=== PATIENT | male | born 1945 | race Caucasian/White ===

== ENCOUNTER → 2017-10-03 16:32 | Outpatient (CLI) | payer MEDICARE, OTHER, SELFPAY ==
--- NOTE | 2017-10-03 16:56 | XR_ITS ---
XR tibia fibula RT 2V CLINICAL INDICATION: Right lower extremity pain and swelling with palpable abnormality ORDERING PHYSICIAN: Era Herrera PATIENT AGE: 72 years COMPARISON: None FINDINGS: There is been prior total knee replacement. There is generalized vascular calcification. No lytic or blastic change. No abnormal soft tissue findings of the leg. No radio opaque foreign bodies IMPRESSION: Status post total knee replacement with generalized vascular calcification otherwise negative right tibia
--- NOTE | 2017-10-03 16:56 | XR_ITS ---
XR hip RT 2-3V w/pelvis CLINICAL INDICATION: Right hip pain ORDERING PHYSICIAN: Era Herrera PATIENT AGE: 72 years COMPARISON: None FINDINGS: Mild osteoarthritic changes involve's both hips slightly greater on the right. There are hypertrophic changes along the acetabular roof laterally. No fracture or dislocation. No lytic or blastic change. There is generalized vascular calcification. IMPRESSION: Mild osteoarthritis of the hips, no acute process
--- NOTE | 2017-10-03 16:56 | XR_ITS ---
XR ankle RT min 3V HISTORY: Right lateral ankle pain ORDERING PHYSICIAN: Era Herrera PATIENT AGE: 72 years COMPARISON: None FINDINGS: No fracture or dislocation. No lytic or blastic change. There is normal mineralization.. The joint spaces are well-preserved. No significant degenerative/arthritic changes. No erosive changes evident. Minimal hypertrophic change involves the medial malleolar region. There is generalized vascular calcification. IMPRESSION: No active process, minimal degenerative changes
--- NOTE | 2017-10-03 16:56 | XR_ITS ---
XR knee RT 3V CLINICAL INDICATION: Right knee pain with swelling and palpable knot ITS.REASON: RT KNEE FLOYD,RT TIB/FIB KNOT,SWELLING ORDERING PHYSICIAN: Era Herrera PATIENT AGE: 72 years COMPARISON: None FINDINGS: There has been a prior total knee replacement. There is good alignment of the prosthesis without evidence of orthopedic complication. Increased density is present in the suprapatellar region consistent with knee joint effusion. There is generalized vascular calcification as well as some minimal periarticular calcification laterally nonspecific. No acute fracture or dislocation. No lytic or blastic change. IMPRESSION: Status post total knee replacement with knee joint effusion
== END ==
PROVIDERS: PCP Physician Assistant; Visit Provider Physician Assistant
DX: M25.561 Pain in right knee (principal); M25.461 Effusion, right knee
CPT/HCPCS: 73502; 73562; 73590; 73610

== ENCOUNTER 2017-11-09 09:51 | Outpatient (RCR) | payer MEDICARE, OTHER, SELFPAY | END 2018-01-31 11:13 | disposition home or self-care (01) | LOC: PT 09:51 | PROVIDERS: Family Provider Physician Assistant; PCP Physician Assistant; Visit Provider Physician Assistant | DX: I48.92 Unspecified atrial flutter (principal) | CPT/HCPCS: 93798 ==

== ENCOUNTER → 2017-12-27 11:38 | Outpatient (CLI) | payer MEDICARE, OTHER, SELFPAY ==
--- NOTE | 2017-12-27 | XR_ITS ---
XR knee RT 3V HISTORY: Right knee pain ITS.REASON: H/O VERO KNEE REPLACEMNT 3 YEARS AGO, C/O RT KNEE PAIN AND SW ORDERING PHYSICIAN: Melchor Beckham PATIENT AGE: 72 years COMPARISON: 10/03/2017 FINDINGS: Status post total knee arthroplasty with good alignment of the prosthesis. There remains increased density in the suprapatellar region consistent with knee joint effusion. Vascular calcification also noted. IMPRESSION: Good alignment knee prosthesis with persistent suprapatellar effusion
--- NOTE | 2017-12-27 11:42 | NM_ITS ---
NM bone 3 phase CLINICAL INDICATION: ITS.REASON: RT KNEE PAIN ORDERING PHYSICIAN: Melchor Beckham PATIENT AGE: 72 years DOSE: 26.7 mCi technetium MDP COMPARISON: Right knee radiograph FINDINGS: Photopenic defects are present from bilateral total knee arthroplasties. Anterior images suggests slight increased blood flow to the suprapatellar region on the right with very slight increase in blood pool activity in the suprapatellar/distal femur region on the right Delayed images suggest slight increased activity in the lateral aspect of the distal femur. This however is only observed on the lateral views and not on the AP views and could be technical in nature. Images obtained from the same day of the right knee show a suprapatellar effusion. IMPRESSION: 1. Status post bilateral total knee replacement. 2. There is slight increase in blood flow and blood pool activity to the suprapatellar region on the right suggesting some mild underlying cellulitis or inflammation. There is a suprapatellar effusion noted on the radiograph 3. No convincing evidence of prosthesis loosening or prosthesis infection
== END ==
PROVIDERS: Family Provider Physician Assistant; PCP Physician Assistant; Visit Provider Orthopaedic Surgery
DX: M25.561 Pain in right knee (principal)
CPT/HCPCS: 73562; 78315; A9503

== ENCOUNTER → 2018-03-05 10:37 | Outpatient (CLI) | payer MEDICARE, OTHER, SELFPAY ==
[2018-03-05 13:30] LABS: Anion Gap 15.6 mEq/L (5-15); Blood Urea Nitrogen 23 mg/dL (7-18); Calcium 9.1 mg/dL (8.5-10.1); Carbon Dioxide 24 mmol/L (21.0-32.0); Chloride 101 mmol/L (98-107); Creatinine,Serum 1.45 mg/dL (0.70-1.30); Estimated Glomerular Filt Rate 48 ml/min (>60); GFR (African American) 58 ML/MIN (>60); Glucose 317 mg/dL (74-106); Potassium 4.6 mmoL/L (3.5-5.1); Sodium 136 mmol/L (136-145)
== END ==
PROVIDERS: Visit Provider Physician Assistant
DX: E87.5 Hyperkalemia (principal)
CPT/HCPCS: 36415; 80048

== ENCOUNTER → 2018-09-26 08:45 | Outpatient (CLI) | payer MEDICARE, OTHER, SELFPAY ==
[2018-09-26 09:16] LABS: Blood Urea Nitrogen 18 mg/dL (7-18); Creatinine,Serum 1.21 mg/dL (0.70-1.30); Estimated Glomerular Filt Rate 59 ml/min (>60); GFR (African American) 72 ML/MIN (>60)
--- NOTE | 2018-09-26 09:55 | MR_ITS ---
MR head/brain wo/w con Ordering Physician: Era Herrera Patient Age: 73 years: Male HISTORY: ITS.REASON: ATAXIA, GAIT ABNORMALITY Patient off balance tend to list to the right. Right leg weakness one year. Some shaking right hand. TECHNIQUE: Pre and postcontrast imaging of brain. : Precontrast Multiplanar FLAIR, T1, T2 weighted images along with axial diffusion/ADC imaging performed on 1.5 T. Siemens, MRI. Postcontrast imaging [id number] ProHance T1-weighted images axial & coronal plane performed COMPARISON :CT head without contrast from 06/05/2018 FINDINGS No mass lesion. No abnormal areas of enhancement Diffusion images show no acute or recent infarct. No territorial infarct evident. No subdural or extra-axial collections. Mild diffuse cerebral atrophy age appropriate . A subtle rim of high signal about the lateral ventricles reflecting aging changes with only scant negligible deep white matter signal foci changes.. Only a subtle scant deep white matter high signal foci otherwise noted, at deep white matter overlying the atria of the left lateral ventricle.. Most notable here is a small high signal focus measures up to 5 mm-. Axial flair image 13. At the base of the left basal ganglia note benign generous recess or perivascular space. No no gliosis associated this is not of significance. Ventricle and basal cisterns appear satisfactory. Cranial cervical junction appears normal, satisfactory.. I would note cervical spondylosis at C3/4 with generous uncovertebral spur to the right paracentral suggested as seen on June CT C-spine... Developing Spinal stenosis this level but. Partially imaged on today's study. The posterior fossa satisfactory. Question scant cerebellar atrophy. Ruebn appears normal.. The CP angles are clear. Cranial nerve VII, 8 appear grossly satisfactory as a past to the respective IACs. No abnormal enhancement in the regions.. No obvious aneurysm at the [place]. Appears to be patent left posterior communicating artery and question, suspect a patent threadlike vessel right posterior technique and artery. mastoid air cells are clear with no mastoid effusion. Middle ear clear. IACs unremarkable. on the previous Jun 2018 CT there was near opacification left sphenoid sinus. Patient on today's MR we continue see near opacification with material that is low signal on T2-weighted images, and intermediate signal on T1 weighted images. This most likely reflects high protein content material greater than 25% protein content inspissated mucoid material. A scant rim of higher T2 signal mucosal thickening otherwise seen at the periphery of the sphenoid sinus. . Only borderline/Scant mucosal thickening at the ethmoid air cells and maxillary sinuses. Frontal sinus is clear/unremarkable.. Orbits unremarkable. Engorgement nasal turbinates bilaterally with deviation of nasal septum convexity mainly evident to the right. Minimal hannah bullosa slightly enlarging middle turbinate on right IMPRESSION------ 1. Diffuse moderate cerebral atrophy. Age-appropriate .Also Question scant cerebellar atrophy. 2. . No acute intracranial findings-no recent or acute ischemia. .....No mass lesion. No territorial infarct ... Scant negligible/minor deep white matter ischemic/gliotic high signal foci findings at cerebral hemispheric (most evident overlying the atrium left lateral ventricle.) 3.. In regard ataxia abnormal gait the CP angles IACs unremarkable.. Unremarkable mastoids.. Only question some scant cerebellar atrophy. Equivocal. Other observations: 4...Opacification left sphenoid sinus similar to Jun 2018 CT head study.... This most likely reflects high proteinaceous material filling the left sphenoid sinus, with a thin rim of edematous mucosa surr
== END ==
PROVIDERS: Visit Provider Physician Assistant
DX: R26.89 Other abnormalities of gait and mobility (principal)
CPT/HCPCS: 36415; 70553; 82565; 84520; A9576

== ENCOUNTER 2020-08-15 11:52 | Emergency (ER) | payer MEDICARE, SELFPAY ==
[2020-08-15 12:39] VITALS: BP 116/63; PULSE 64; RESP 18; TEMP 36.6; O2SAT 99; BMI 28.5
--- NOTE | 2020-08-15 12:45 | HMH.EDUTC ---
[facility] Disposition Clinical Impression: Dizziness Sinusitis Qualifiers: Sinusitis location: unspecified location Chronicity: unspecified Qualified Code(s): J32.9 - Chronic sinusitis, unspecified Otitis media Qualifiers: Otitis media type: unspecified Laterality: left Qualified Code(s): H66.92 - Otitis media, unspecified, left ear Disposition: Home, Self-Care Condition on Discharge: Good Instructions: Combating Dizziness in Older Adults, Sinusitis, Sinus Headache, Middle Ear Infection, Meclizine, Amoxicillin Additional Instructions: *Monitor Temp, Over the counter Motrin or Tylenol as directed/as needed Tylenol every 4 hours and Motrin every 6 hours (as long as your family doctor has told you that you can take it) for fever or pain. and straight to ER if unable to lower temp less than 101.0 after medication given *Warm salt water gargles may help to soothe the throat *Throat Lozenges *Warm fluids like tea with honey may help to soothe the throat *Sleep elevated *Humidifier/Vaporizer *Flonase 2 sprays in each nostril daily but be aware that it may take 2-3 days before you notice improvement Take medication as prescribed Follow up IMMEDIATELY for new or worsening symptoms or no Noticeable improvement over the next 48-72 hours. 911 for difficulty breathing or swallowing You was tested for today for COVID19 your test result should be back in the next 24-48 hours, you may call to the [facility] tomorrow to see if your test results are back and the result [phone] You was given a handout with instructions for Self Quarantine and Self isolation for while you wait on test results and what to do if they are positive If you are positive the Health Dept will be contacting you also Prescriptions: Amoxicillin [Amoxicillin 500mg Cap] 500 mg PO TID #30 cap Transmission Status: Received by [facility] Meclizine HCl [Antivert 12.5mg tablet] 12.5 mg PO BID PRN #10 tab PRN Reason: Dizziness Transmission Status: Received by [facility] Referrals: Sharonda Abarca [Primary Care Provider] - As needed Time of Disposition: 13:00 Medical Decision Making - Ricki Inquiry Pt receiving controlled substance: No Ricki was queried for this patient: No Vital Signs: 08/15/20 12:39 Temperature 98 F Temperature Source Oral Pulse Rate [Radial] 64 Respiratory Rate 18 Blood Pressure [Right Arm] 116/63 Blood Pressure Mean [Right Arm] 80 Blood Pressure Source [Right Arm] Automatic Cuff Blood Pressure Position [Right Arm] Sitting 02 Sat by Pulse Oximetry 99 Oxygen Delivery Method Room Air Orders (Tests/Meds): ORDERS Category Date Time Status Covid-19 Nasal PCR ([facility]) Routine Lab 08/15/20 12:20 Received Medical Decision Narrative: Medication discussed with pharmacy [facility] HPI - General Stated complaint: cough,weakness, wants covid test Time Seen by Provider: 08/15/20 12:45 Mode of Arrival: Wheelchair Source of Information: Patient Limitations: No Limitations Description of Symptoms (Recalled from Triage Doc. by RN): dizziness,cough since this am wants covid test HEENT Symptoms (Recalled from RN notes): Yes Resp Symptoms (Recalled from RN notes): No Skin Symptoms (Recalled from RN notes): No MS Symptoms (Recalled from RN notes): No Functional Status (Recalled from RN notes): wnl - History of Present Illness Provider Complaint: Patient state that he has been having spells of dizziness for over a month States that he has been having some sinus congestion and feeling like his ears are full States that this morning he woke up and had some dizziness, feeling achy all over and was worried that he may have COVID and wanted to get tested Denies dizziness at this time - Related Data Home Medications Medication Instructions Recorded Confirmed Apixaban [Eliquis] 5 mg PO BID 06/05/18 06/05/18 Aspirin [Aspir 81] 81 mg PO DAILY 06/05/18 06/05/18 Cholecalciferol (Vitamin D3) 1,000 unit PO DAILY 06/05/18 06/05/18 [
[2020-08-15 13:15] VITALS: BP 116/63; PULSE 64; RESP 18; TEMP 36.6; O2SAT 99
== END 2020-08-15 13:16 | disposition home or self-care (01) ==
PROVIDERS: Emergency Provider Nurse Practitioner; PCP Family Medicine
DX: Z20.828 Contact with and (suspected) exposure to other viral communicable diseases (principal); J32.9 Chronic sinusitis, unspecified; H66.92 Otitis media, unspecified, left ear; E11.9 Type 2 diabetes mellitus without complications; Z79.899 Other long term (current) drug therapy
CPT/HCPCS: G0463; 99201; U0003

== ENCOUNTER → 2020-10-28 12:26 | Outpatient (CLI) | payer MEDICARE, SELFPAY ==
--- NOTE | 2020-10-28 12:27 | CA_ITS ---
APPROVED REPORT EXAM: Comprehensive 2D, Doppler, and color-flow Echocardiogram Senior Designer: Diana Nice RVT Ht: 6 ft 0 in Wt: 208lbs BSA: 2.17 BP: 113/64 mmHg Indications: SOA,CAD,DM,A-FIB,HTN,HLD 2D Dimensions LVOT 1.75 cm (M/F) 1.5-2.5 M-Mode Dimensions RVDd 2.37 cm (0.9-2.6) LA Diam 3.49 cm (1.9-4.0) LVDd 4.38 cm (3.5-5.7) Ao Diam 3.63 cm (2.0-3.7) LVDs 2.85 cm (3.5-5.7) IVSd 1.49 cm (0.6-1.1) PWd 0.92 cm (0.6-1.1) EF (Teich) 64.40% FS 34.90% EDV (Teich) 86.80 mL ESV (Teich) 30.90 mL LV Diastology E Decel Time 313.00 (160-240 msec) E/A Ratio 0.8 MED E' 4.30 (< 7 cm/sec) E'/MED E' Ratio 12.44 (>14) LAT E' 7.80 (<10 cm/sec) E/LAT E' Ratio 6.86 (>14) Mitral Valve MV E Max Owen. 54.00 (40-130 cm/s) MV A Velocity 72.00 (40-130 cm/s) E/A Ratio 0.75 MV Decel. Time 313.00 (160-240 ms) MV PHT 92.00 ms Pulmonary Valve PV Peak Velocity 66.00 (50-150 cm/s) Tricuspid Valve TR P. Velocity 153.00 cm/s Left Ventricle Left atrium is mildly enlarged, left ventricle is normal size, mild concentric left ventricular hypertrophy, visually estimated ejection fraction 55% with no regional wall motion abnormality, diastolic parameters are inconclusive. Right Ventricle Right atrium and right ventricle are normal size and contractility. Aortic Valve Aortic valve is thickened and calcified without aortic stenosis or aortic insufficiency. Mitral Valve Mitral valve leaflets are minimally thickened, there is mild mitral regurgitation. Tricuspid Valve Tricuspid valve is grossly normal, there is trace tricuspid regurgitation, tricuspid regurgitation jet velocity is inadequate for calculation of the right ventricular systolic pressure. Pulmonic Valve Pulmonic valve is poorly visualized. Great Vessels Aortic root is normal size. Pericardium No significant pericardial effusion noted. Conclusion 1. Mildly enlarged left atrium, normal left ventricular size, mild concentric left ventricular hypertrophy, visually estimated ejection fraction 55% with no regional wall motion abnormality, diastolic parameters are inconclusive. 2. Thickened and calcified aortic valve without aortic stenosis or aortic insufficiency. 3. Mild mitral and tricuspid regurgitation. 4. No significant pericardial effusion noted. Electronically signed by : Esa Pham, 10/28/2020 18:30:47
== END ==
PROVIDERS: PCP Family Medicine; Visit Provider Nurse Practitioner Family
DX: E11.9 Type 2 diabetes mellitus without complications (principal); I25.10 Atherosclerotic heart disease of native coronary artery without angina pectoris; I48.0 Paroxysmal atrial fibrillation; Z85.828 Personal history of other malignant neoplasm of skin; Z95.5 Presence of coronary angioplasty implant and graft; Z79.84 Long term (current) use of oral hypoglycemic drugs
CPT/HCPCS: 93306

== ENCOUNTER 2021-09-29 10:00 | Outpatient (RCR) | payer MEDICARE, SELFPAY | END 2021-11-02 14:00 | disposition home or self-care (01) | LOC: PT.CARL 10:00 | PROVIDERS: PCP Family Medicine; Visit Provider Orthopaedic Surgery Adult Reconstructive Orthopaedic Surgery | DX: M54.50 Low back pain, unspecified (principal); M46.1 Sacroiliitis, not elsewhere classified | CPT/HCPCS: 97010; 97012; 97014; 97110; 97140; 97163; G0283 ==

== ENCOUNTER 2022-02-25 15:43 | Emergency (ER) | payer MEDICARE, SELFPAY ==
[2022-02-25 15:44] VITALS: BP 123/73; PULSE 80; RESP 18; TEMP 39.3; O2SAT 98; BMI 27.1; BMI 31.1
--- NOTE | 2022-02-25 15:58 | XR_ITS ---
PROCEDURE INFORMATION: Exam: XR Chest Exam date and time: 02/25/2022 4:19 PM Age: 76 years old Clinical indication: Cough; Additional info: Fever cough TECHNIQUE: Imaging protocol: XR of the chest. Views: 1 view. COMPARISON: CR CXR2 XR chest AP 06/05/2018 6:19 AM FINDINGS: Tubes, catheters and devices: Loop recorder is noted. Lungs: No focal pneumonia or pneumothorax. Atelectatic changes noted within both lung bases. Pleural spaces: There are no pleural effusions present. Heart/Mediastinum: Unremarkable. No cardiomegaly. Bones/joints: Postoperative changes of the lower cervical spine. The thoracic spine demonstrates moderate degenerative changes at multiple levels. IMPRESSION: 1. No focal pneumonia or pneumothorax. 2. Atelectatic changes noted within both lung bases.
[2022-02-25 16:00] VITALS: BP 145/61; PULSE 69; RESP 17; O2SAT 95
[2022-02-25 16:33] LABS: Coronavirus 19, PCR Not Detected (NotDetected); Influenza A, PCR Not Detected (NotDetected); Influenza B, PCR Not Detected (NotDetected)
[2022-02-25 16:36] LABS: Potassium 4.8 mmoL/L (3.5-5.1); Sodium 133 mmol/L (136-145)
[2022-02-25 16:37] LABS: Chloride 98 mmol/L (98-107)
[2022-02-25 16:38] LABS: Basophils # 0.1 K/mm3 (0-0.2); Basophils % 0.6 % (0.1-2.0); Eosinophils % 0.3 % (0.1-12.0); Hematocrit 44.4 % (42.0-52.0); Hemoglobin 14.8 g/dL (14.1-18.0); Lymphocytes # 0.4 K/mm3 (0.7-4.5); Lymphocytes % 3.4 % (10-50); Mean Corpuscular HGB Conc 33.3 g/dL (31.8-35.4); Mean Corpuscular Hemoglobin 29.9 pg (27.0-31.2); Mean Corpuscular Volume 89.6 fl (80-94); Mean Platelet Volume 9.1 fl (7.4-10.4); Monocytes # 0.5 K/mm3 (0.1-1.0); Neutrophils # 9.4 K/mm3 (1.8-7.8); Neutrophils % 90.8 % (37.0-80.0); Platelet Count 112 K/mm3 (142-424); Red Blood Count 4.95 M/mm3 (4.60-6.20); Red Cell Distribution Width 14.1 % (11.5-17.5); White Blood Count 10.4 K/mm3 (4.8-10.8)
[2022-02-25 16:39] LABS: Alanine Aminotransferase 30 U/L (12-78); Albumin Level 4.7 g/dl (3.5-5.0); Albumin/Globulin Ratio 1.6 (1.1-1.8); Alkaline Phosphatase 67 U/L (38-126); Anion Gap 16.8 mEq/L (5-15); Aspartate Amino Transferase 31 U/L (17-59); Bilirubin,Total 1.3 mg/dl (0.2-1.3); Blood Urea Nitrogen 22 mg/dl (9-20); Carbon Dioxide 23 mmol/L (22.0-30.0); Creatinine Clearance Estimated 64 mL/min (50-200); Estimated Glomerular Filt Rate 54 ml/min (>60); GFR (African American) 65 ML/MIN (>60); Total Protein,Serum 7.7 g/dl (6.3-8.2)
[2022-02-25 16:40] LABS: Calcium 9.7 mg/dl (8.4-10.2)
[2022-02-25 16:41] LABS: MANUAL DIFFERENTIAL MANUAL DIFFERENTIAL (MANUAL DIFF)
[2022-02-25 16:43] LABS: Lactic Acid 2.2 mmol/L (0.7-2.1)
[2022-02-25 16:44] LABS: Glucose 411 mg/dl (74-100)
--- NOTE | 2022-02-25 16:44 | PC.NURSE ---
[facility] glucose 411
[2022-02-25 17:00] VITALS: BP 140/60; PULSE 69; RESP 25; O2SAT 95
[2022-02-25 17:02] LABS: VBG Base Excess -5.4 mmol/L (-2.4-2.3); VBG HCO3 20.2 mmol/L (23-30); VBG Oxygen Saturation 69.6 % (50-70); VBG PCO2 37.5 mmol/L (35-51); VBG PH 7.35 mmol/L (7.31-7.41); VBG PO2 35.1 mmol/L (28-40); VBG Total CO2 21.3 mmol/L (23-27)
[2022-02-25 17:21] LABS: Acetone, Serum (Rapid) None Detected (None Detect)
--- NOTE | 2022-02-25 17:26 | HMH.EDGENADL ---
ED Disposition Clinical Impression: Generalized weakness, Acute febrile illness, Hyperglycemia due to diabetes mellitus Disposition: Home, Self-Care Condition on Discharge: Good Referrals: Polina Long APRN [Primary Care Provider] - - Critical Care Critical Care Time: No Attestation: On 02/25/22, the high probability of a clinically significant, sudden or life threatening deterioration of the following system(s) required my full and direct attention, intervention and personal management. The time I documented below is in addition to time spent performing reported procedures but includes the following listed in this critical care notation. Medical Decision Making - Ricki Inquiry Pt receiving controlled substance: No Vital Signs: 02/25/22 15:44 02/25/22 16:00 02/25/22 17:00 Temperature 102.8 F H Temperature Source Oral Pulse Rate 69 69 Pulse Rate [Radial] 80 Respiratory Rate 18 17 25 H Blood Pressure 145/61 H 140/60 Blood Pressure [Right Arm] 123/73 Blood Pressure Mean 86 Blood Pressure Mean [Right Arm] 89 Blood Pressure Position [Right Arm] Sitting 02 Sat by Pulse Oximetry 98 95 95 Oxygen Delivery Method Room Air Room Air 02/25/22 20:46 Temperature 98.7 F Temperature Source Oral Pulse Rate 63 Pulse Rate [Radial] Respiratory Rate 18 Blood Pressure 115/62 Blood Pressure [Right Arm] Blood Pressure Mean Blood Pressure Mean [Right Arm] Blood Pressure Position [Right Arm] 02 Sat by Pulse Oximetry Oxygen Delivery Method - Lab Data Lab Results 02/25/22 16:10: WBC 10.4, RBC 4.95, Hgb 14.8, Hct 44.4, MCV 89.6, MCH 29.9, MCHC 33.3, RDW 14.1, Plt Count 112 L, MPV 9.1, Neut % (Auto) 90.8 H, Lymph % (Auto) 3.4 L, [place] % (Auto) 5.0, Eos % (Auto) 0.3, Baso % (Auto) 0.6, Neut # (Auto) 9.4 H, Lymph # (Auto) 0.4 L, [place] # (Auto) 0.5, Eos # (Auto) 0.0, Baso # (Auto) 0.1, Total Counted 100, Neutrophils % (Manual) 91 H, Lymphocytes % (Manual) 5 L, Monocytes % (Manual) 4, Platelet Estimate Slight decrease, RBC Morphology Not Reportable 02/25/22 16:10: Sodium 133 L, Potassium 4.8, Chloride 98, Carbon Dioxide 23, Anion Gap 16.8 H, BUN 22 H, Creatinine 1.30 H, Estimated Creat Clear 64, Estimated GFR 54 L, Est GFR ( Amer) 65, Glucose 411 H*, Calcium 9.7, Total Bilirubin 1.3, AST 31, ALT 30, Alkaline Phosphatase 67, Total Protein 7.7, Albumin 4.7, Globulin 3.0, Albumin/Globulin Ratio 1.6 02/25/22 16:10: Lactate 2.2 H 02/25/22 16:10: SARS-CoV-2 (PCR) Not detected, Influenza A Untype (PCR) Not detected, Influenza Type B (PCR) Not detected 02/25/22 16:10: Acetone Level None detected 02/25/22 16:55: VBG pH 7.35, VBG pCO2 37.5, VBG pO2 35.1, VBG HCO3 20.2 L, VBG Total CO2 21.3 L, VBG O2 Saturation 69.6, VBG Base Excess -5.4 L 02/25/22 19:43: POC Glucose 212 H 02/25/22 19:45: Lactate 1.8 Result diagrams: 02/25/22 16:10 02/25/22 16:10 Orders (Tests/Meds): ED MEDICATIONS Discontinued Medications Generic Name Dose Route Start Last Admin Trade Name Freq PRN Reason Stop Dose Admin Acetaminophen 1,000 mg 02/25/22 15:59 02/25/22 16:16 Acetaminophen 500mg Tab PO 02/25/22 16:00 1,000 mg ONCE ONE Administration Lactated Ringer's 1,000 mls @ 999 mls/hr 02/25/22 16:00 02/25/22 16:16 Lactated Ringer's 1000 Ml Bag IV 02/25/22 17:00 999 mls/hr .Q1H1M LATASHA Administration Lactated Ringer's 1,000 mls @ 999 mls/hr 02/25/22 17:15 02/25/22 17:15 Lactated Ringer's 1000 Ml Bag IV 02/25/22 18:15 999 mls/hr .Q1H1M LATASHA Administration Ketorolac Tromethamine 15 mg 02/25/22 17:10 02/25/22 17:16 Ketorolac 30mg/Ml Vial IV 02/25/22 17:11 15 mg ONCE ONE Administration Nitroglycerin 0.4 mg 02/25/22 17:18 02/25/22 17:20 Nitroglycerin 0.4mg Sl Tablet SL 02/25/22 17:19 Not Given ONCE ONE ORDERS Category Date Time Status Blood Culture Stat Micro 02/25/22 16:10 Received VBG [Venous Blood Gas] Stat RT 02/25/22 16:54 Ordered Medical Decision Narrative:
--- NOTE | 2022-02-25 17:30 | PC.NURSE ---
Went into room to check on patient. Patient stated he would like the head of the bed laid back. Patient states he does not need anything else at this time.
[2022-02-25 19:19] LABS: Lymphocytes % 5 % (10-50); Monocytes % 4 % (2-9); Neutrophils % 91 % (42-76); Platelet Estimate Slight Decrease; Total Cells Counted 100
--- NOTE | 2022-02-25 19:44 | PC.NURSE ---
lab staff in room to draw lactate
[2022-02-25 19:50] LABS: POC Glucose,Bedside 212 (70-110)
[2022-02-25 19:57] LABS: Reflex Lactic Add Lactic Reflex
[2022-02-25 20:15] LABS: Lactic Acid Follow Up (RFLX 1) 1.8 mmol/L (0.7-2.1)
[2022-02-25 20:46] VITALS: BP 115/62; PULSE 63; RESP 18; TEMP 37.1; O2SAT 98
== END 2022-02-25 20:49 | disposition home or self-care (01) ==
PROVIDERS: Emergency Provider Student in an Organized Health Care Education/Training Program; PCP Nurse Practitioner Family
DX: E11.65 Type 2 diabetes mellitus with hyperglycemia (principal); R53.1 Weakness; R50.9 Fever, unspecified; I25.10 Atherosclerotic heart disease of native coronary artery without angina pectoris; Z79.01 Long term (current) use of anticoagulants; I48.91 Unspecified atrial fibrillation; E78.5 Hyperlipidemia, unspecified; I10 Essential (primary) hypertension; Z85.9 Personal history of malignant neoplasm, unspecified
CPT/HCPCS: 36415; 71045; 80053; 82009; 82803; 82962; 83605; 85007; 85025; 87040; 96365; 96366; 96375; 99284; C9803; U0003; U0005

== ENCOUNTER → 2022-08-09 10:20 | Outpatient (CLI) | payer MEDICARE, SELFPAY ==
[2022-08-09 18:28] LABS: Basophils # 0.1 K/mm3 (0-0.2); Basophils % 0.7 % (0.1-2.0); Eosinophils # 0.1 K/mm3 (0.0-0.4); Eosinophils % 1.5 % (0.1-12.0); Hematocrit 51.9 % (42.0-52.0); Hemoglobin 16.7 g/dL (14.1-18.0); Mean Corpuscular HGB Conc 32.1 g/dL (31.8-35.4); Mean Corpuscular Hemoglobin 28.9 pg (27.0-31.2); Mean Corpuscular Volume 90.2 fl (80-94); Mean Platelet Volume 9.6 fl (7.4-10.4); Monocytes # 0.5 K/mm3 (0.1-1.0); Monocytes % 7.3 % (1.7-9.3); Neutrophils # 4.8 K/mm3 (1.8-7.8); Neutrophils % 74.5 % (37.0-80.0); Platelet Count 172 K/mm3 (142-424); Red Blood Count 5.76 M/mm3 (4.60-6.20); Red Cell Distribution Width 14.7 % (11.5-17.5); White Blood Count 6.5 K/mm3 (4.8-10.8)
[2022-08-09 18:43] LABS: Alanine Aminotransferase 41 U/L (12-78); Albumin Level 4.8 g/dl (3.5-5.0); Albumin/Globulin Ratio 1.6 (1.1-1.8); Alkaline Phosphatase 118 U/L (38-126); Anion Gap 22.9 mEq/L (5-15); Aspartate Amino Transferase 52 U/L (17-59); Bilirubin,Total 0.8 mg/dl (0.2-1.3); Blood Urea Nitrogen 21 mg/dl (9-20); Carbon Dioxide 22 mmol/L (22.0-30.0); Chloride 99 mmol/L (98-107); Chol/HDL Ratio 8.4 (1-3.5); Cholesterol 226 mg/dl (140-200); Estimated Glomerular Filt Rate 65 ml/min (>60); GFR (African American) 79 ML/MIN (>60); Glucose 207 mg/dl (74-100); HDL Cholesterol 27 mg/dl (40-60); Potassium 4.9 mmoL/L (3.5-5.1); Sodium 139 mmol/L (136-145); Total Protein,Serum 7.8 g/dl (6.3-8.2); Triglycerides 320 mg/dl (30-150); VLDL Cholesterol 64 mg/dL (0-40)
[2022-08-09 18:53] LABS: Direct LDL Cholesterol 117.79 mg/dL (100-129)
[2022-08-09 19:13] LABS: Thyroid Stimulating Hormone 1.66 uIU/mL (0.465-4.68)
== END ==
PROVIDERS: PCP Family Medicine; Visit Provider Family Medicine
DX: E11.9 Type 2 diabetes mellitus without complications (principal); E78.5 Hyperlipidemia, unspecified; I10 Essential (primary) hypertension; I25.10 Atherosclerotic heart disease of native coronary artery without angina pectoris; S00.03XA Contusion of scalp, initial encounter; Z95.5 Presence of coronary angioplasty implant and graft; Z79.4 Long term (current) use of insulin; I48.0 Paroxysmal atrial fibrillation
CPT/HCPCS: 80053; 80061; 83036; 84443; 85025

== ENCOUNTER 2022-11-14 22:26 | Emergency (ER) | payer MEDICARE, SELFPAY ==
[2022-11-14 22:29] VITALS: BP 177/80; PULSE 58; RESP 16; TEMP 36.7; O2SAT 96; BMI 27.1
--- NOTE | 2022-11-14 22:41 | ECG_ITS ---
APPROVED REPORT Exam: Resting ECG HR:61 bpm ECG Measurements Heart Rate 61 AXES OR 174 P 60 QRSd 84 QRS 34 QT 410 T 54 QTc 414 Conclusion SINUS RHYTHM NORMAL ECG UNCONFIRMED REPORT Electronically signed by : Manuel Sagastume MD 11/15/2022 21:16:57
[2022-11-14 22:49] LABS: Basophils # 0.1 K/mm3 (0-0.2); Basophils % 1.1 % (0.1-2.0); Eosinophils # 0.2 K/mm3 (0.0-0.4); Eosinophils % 2.9 % (0.1-12.0); Hematocrit 47.1 % (42.0-52.0); Hemoglobin 16.2 g/dL (14.1-18.0); Lymphocytes # 1.5 K/mm3 (0.7-4.5); Lymphocytes % 27.1 % (10-50); Mean Corpuscular HGB Conc 34.4 g/dL (31.8-35.4); Mean Corpuscular Hemoglobin 29.2 pg (27.0-31.2); Mean Corpuscular Volume 84.9 fl (80-94); Mean Platelet Volume 8.3 fl (7.4-10.4); Monocytes # 0.3 K/mm3 (0.1-1.0); Monocytes % 6.1 % (1.7-9.3); Neutrophils # 3.5 K/mm3 (1.8-7.8); Neutrophils % 62.8 % (37.0-80.0); Platelet Count 137 K/mm3 (142-424); Red Blood Count 5.55 M/mm3 (4.60-6.20); Red Cell Distribution Width 14.7 % (11.5-17.5); White Blood Count 5.6 K/mm3 (4.8-10.8)
[2022-11-14 22:56] LABS: Alanine Aminotransferase 29 U/L (12-78); Albumin Level 4.6 g/dl (3.5-5.0); Albumin/Globulin Ratio 1.5 (1.1-1.8); Alkaline Phosphatase 96 U/L (38-126); Anion Gap 12.1 mEq/L (5-15); Aspartate Amino Transferase 34 U/L (17-59); Bilirubin,Total 0.5 mg/dl (0.2-1.3); Blood Urea Nitrogen 20 mg/dl (9-20); Calcium 9.3 mg/dl (8.4-10.2); Carbon Dioxide 29 mmol/L (22.0-30.0); Chloride 100 mmol/L (98-107); Creatinine Clearance Estimated 55 mL/min (50-200); Estimated Glomerular Filt Rate 46 ml/min (>60); GFR (African American) 55 ML/MIN (>60); Glucose 346 mg/dl (74-100); Potassium 4.1 mmoL/L (3.5-5.1); Sodium 137 mmol/L (136-145); Total Protein,Serum 7.6 g/dl (6.3-8.2)
[2022-11-14 23:00] VITALS: BP 163/77; O2SAT 92
[2022-11-14 23:02] LABS: C-Reactive Protein 0.7 mg/L (0-4)
--- NOTE | 2022-11-14 23:03 | PC.NURSE ---
in room @ this time.
--- NOTE | 2022-11-14 23:07 | HMH.EDSOB ---
Discharge Plan Disposition Patient Disposition: Home, Self-Care Chief Complaint: Shortness of Breath/Dyspnea Prescriptions Prescriptions: No Action metoprolol tartrate 25 mg tablet 25 mg PO BID Qty: 60 5RF gabapentin 600 mg tablet 600 mg PO BID glipizide 10 mg tablet extended release 24hr 10 mg PO BID Ozempic 0.25 mg or 0.5 mg(2 mg/1.5 mL) pen injector SQ magnesium oxide 400 mg magnesium tablet 400 mg PO DAILY multivitamin Tablet 1 tab PO DAILY cholecalciferol (vitamin D3) 25 mcg (1,000 unit) tablet 25 mcg PO DAILY Eliquis 5 mg tablet 5 mg PO BID mecobalamin (vitamin B12) 1,000 mcg tablet,chewable 1,000 mcg PO DAILY metformin 1,000 mg tablet extended release 24hr 1,000 mg PO BID rosuvastatin [Crestor] 40 mg tablet 40 mg PO DAILY Qty: 90 1RF sertraline 100 MG tablet 200 mg PO DAILY tamsulosin 0.4 MG capsule 0.4 mg PO DAILY gabapentin 300 MG capsule 300 mg PO TID omeprazole 20 MG capsule,delayed release(DR/EC) 20 mg PO DAILY cholecalciferol (vitamin D3) 1,000 UNIT capsule 1,000 unit PO DAILY omega-3 acid ethyl esters 1 GM capsule 1,800 mg PO BID apixaban 5 MG tablet 5 mg PO BID Referrals Follow up/Referrals: Arjun Giles MD [Primary Care Provider] - See instructions Clinical Impressions Clinical Impression: Acute dyspnea, DM2 (diabetes mellitus, type 2), Esophagitis Instructions Patient Instructions: DI for Shortness of Breath Discharge ED Provider: Amber (ED)Yobani Resp/SOB HPI General Chief Complaint: Shortness of Breath/Dyspnea Stated Complaint: SOB Time Seen by Provider: 11/14/22 23:07 Mode of Arrival: Wheelchair Source of Information: Patient, Spouse and Medical Record Limitations: No Limitations Description of Symptoms (Recalled from ER Triage Doc. by RN): pt c/o SOA tonight when laying down to go to sleep History of Present Illness this patient presents tonight with c/c of sob with lying flat w/o chest pain but gives hx of chronic cough and hx of diabetes - has hx of a fib and on anti-coag - denied gerd Complaint: shortness of breath Onset (ago): hour(s) Severity: moderate Relieving factors: upright position Exacerbating factors: lying flat Known history of: diabetes Associated symptoms: denies other symptoms Related Data Home oxygen amount: none Home Medications Medication Instructions Recorded Confirmed apixaban 5 mg tablet 5 mg PO BID Blood thinner 06/05/18 10/18/22 cholecalciferol (vitamin D3) 25 1,000 unit PO DAILY SUPPLEMEMENT 06/05/18 10/18/22 mcg (1,000 unit) capsule gabapentin 300 mg capsule 300 mg PO TID Pain 06/05/18 10/18/22 omega-3 acid ethyl esters 1 gram 1,800 mg PO BID . 06/05/18 10/18/22 capsule omeprazole 20 mg capsule,delayed 20 mg PO DAILY GERD 06/05/18 10/18/22 release sertraline 100 mg tablet 200 mg PO DAILY Depression 06/05/18 10/18/22 tamsulosin 0.4 mg capsule 0.4 mg PO DAILY PROSTATE 06/05/18 10/18/22 metformin 1,000 mg tablet,extended 1,000 mg PO BID 04/20/22 10/18/22 release 24hr apixaban 5 mg tablet (Eliquis) 5 mg PO BID 08/09/22 10/18/22 cholecalciferol (vitamin D3) 25 25 mcg PO DAILY 08/09/22 10/18/22 mcg (1,000 unit) tablet gabapentin 600 mg tablet 600 mg PO BID 08/09/22 10/18/22 glipizide 10 mg tablet, extended 10 mg PO BID 08/09/22 10/18/22 release 24 hr magnesium oxide 400 mg PO DAILY 08/09/22 10/18/22 mecobalamin (vitamin B12) 1,000 1,000 mcg PO DAILY 08/09/22 10/18/22 mcg chewable tablet multivitamin 1 tab PO DAILY 08/09/22 10/18/22 semaglutide 0.25 mg or 0.5 mg (2 mg SQ 08/09/22 10/18/22 mg/1.5 mL) subcutaneous pen injector (Ozempic) Previous Rx's Medication Instructions Recorded rosuvastatin 40 mg tablet (Crestor) 40 mg PO DAILY #90 tabs 09/05/22 metoprolol tartrate 25 mg tablet 25 mg PO BID #60 tabs 10/18/22 Allergies Allergy/AdvReac Type Severity Reaction Status Date / Time
[2022-11-14 23:12] LABS: Troponin I < 0.01 ng/ml (0.00-0.034)
[2022-11-14 23:15] LABS: Procalcitonin 0.055 ng/mL (0.0-2.0)
[2022-11-14 23:22] LABS: Erythrocyte Sedimentation Rate 15 mm/hr (0-20)
[2022-11-14 23:30] VITALS: BP 166/78; PULSE 58; O2SAT 94
[2022-11-14 23:34] LABS: NT Pro Brain Natriuretic Pep. 72.3 pg/mL (0-450)
[2022-11-14 23:46] LABS: Acetone, Serum (Rapid) None Detected (None Detect)
[2022-11-15] VITALS: BP 169/78; PULSE 58; O2SAT 94
--- NOTE | 2022-11-15 | XR_ITS ---
PROCEDURE INFORMATION: Exam: XR Chest Exam date and time: 11/15/2022 12:00 AM Age: 77 years old Clinical indication: Shortness of breath; Prior surgery; Additional info: SOA TECHNIQUE: Imaging protocol: Radiologic exam of the chest. Views: 2 views. COMPARISON: CR XR CHEST PORTABLE 02/25/2022 4:19 PM FINDINGS: Lungs: Unremarkable. No consolidation. Pleural spaces: Unremarkable. No pleural effusion. No pneumothorax. Heart/Mediastinum: Loop cardiac recorder present. Bones/joints: Surgical fusion noted in the cervical spine. Mild degenerative changes of the shoulders are noted. Anterior endplate osteophyte formation. IMPRESSION: No acute process identified.
--- NOTE | 2022-11-15 | CT_ITS ---
PROCEDURE INFORMATION: Exam: CTA Chest With Contrast Exam date and time: 11/15/2022 12:16 AM Age: 77 years old Clinical indication: Shortness of breath; Prior surgery; Additional info: SOA TECHNIQUE: Imaging protocol: Computed tomographic angiography of the chest with contrast. 3D rendering (Not supervised by radiologist): MIP and/or 3D reconstructed images were created by the technologist. Radiation optimization: All CT scans at this facility use at least one of these dose optimization techniques: automated exposure control; mA and/or kV adjustment per patient size (includes targeted exams where dose is matched to clinical indication); or iterative reconstruction. Contrast material: ISOVUE; Contrast volume: 70 ml; Contrast route: INTRAVENOUS (IV); Other protocol: This patient has received 0 known CTs and 0 known cardiac nuclear medicine studies in the 12 months prior to the current study. COMPARISON: CR XR CHEST 2V 11/15/2022 12:00 AM FINDINGS: Limitations: Examination is limited by respiratory motion. Pulmonary arteries: Pulmonary artery evaluation of good technical quality with no pulmonary artery embolism identified. Aorta: No thoracic aortic aneurysm, dissection or other acute thoracic aortic injury. Other arteries: Atherosclerosis is evident. Lungs: Subpleural scarring and/or atelectasis. Benign granulomatous disease of the lung is noted. Pleural spaces: Unremarkable. No pneumothorax. No pleural effusion. Heart: Loop cardiac recorder present. Coronary arteries: Calcific coronary artery disease is evident. Mediastinal space: There is distal esophageal wall thickening, suspicious for mild esophagitis. Lymph nodes: Unremarkable. No enlarged lymph nodes. Diaphragm: A small sliding hiatal hernia is present. There is nonspecific elevation of the right hemidiaphragm. Bones/joints: Surgical fusion noted in the cervical spine. Anterior endplate osteophyte formation. Soft tissues: Unremarkable. IMPRESSION: 1. No pulmonary artery embolism identified. 2. No thoracic aortic aneurysm, dissection or other acute thoracic aortic injury. 3. There is distal esophageal wall thickening, suspicious for mild esophagitis. Small hiatal hernia.
--- NOTE | 2022-11-15 00:17 | PC.NURSE ---
pt out of room to CT @ this time
--- NOTE | 2022-11-15 00:20 | PC.NURSE ---
pt back in room @ this time.
[2022-11-15 02:09] VITALS: BP 157/79; PULSE 57; RESP 16; TEMP 36.6; O2SAT 95
== END 2022-11-15 02:10 | disposition home or self-care (01) ==
PROVIDERS: Emergency Provider Emergency Medicine; PCP Family Medicine
DX: R06.02 Shortness of breath (principal); R06.00 Dyspnea, unspecified; K20.90 Esophagitis, unspecified without bleeding; E11.9 Type 2 diabetes mellitus without complications; I48.91 Unspecified atrial fibrillation; Z79.01 Long term (current) use of anticoagulants; I25.10 Atherosclerotic heart disease of native coronary artery without angina pectoris; I10 Essential (primary) hypertension
CPT/HCPCS: 71046; 71275; 80053; 82009; 83880; 84145; 84484; 85025; 85651; 86140; 93005; 96361; 96374; 96375; 99285; Q9967

== ENCOUNTER → 2023-03-22 16:59 | Outpatient (CLI) | payer MEDICARE, SELFPAY ==
[2023-03-22 17:13] LABS: Basophils % 0.3 % (0.1-2.0); Eosinophils # 0.1 K/mm3 (0.0-0.4); Eosinophils % 1.9 % (0.1-12.0); Hematocrit 47.6 % (42.0-52.0); Hemoglobin 15.8 g/dL (14.1-18.0); Lymphocytes # 0.8 K/mm3 (0.7-4.5); Lymphocytes % 12.9 % (10-50); Mean Corpuscular HGB Conc 33.1 g/dL (31.8-35.4); Mean Corpuscular Hemoglobin 28.3 pg (27.0-31.2); Mean Corpuscular Volume 85.6 fl (80-94); Mean Platelet Volume 9.3 fl (7.4-10.4); Monocytes # 0.3 K/mm3 (0.1-1.0); Monocytes % 5.1 % (1.7-9.3); Neutrophils % 79.8 % (37.0-80.0); Platelet Count 147 K/mm3 (142-424); Red Blood Count 5.56 M/mm3 (4.60-6.20); White Blood Count 6.3 K/mm3 (4.8-10.8)
[2023-03-22 17:20] LABS: Alanine Aminotransferase 40 U/L (12-78); Albumin Level 4.7 g/dl (3.5-5.0); Albumin/Globulin Ratio 1.8 (1.1-1.8); Alkaline Phosphatase 135 U/L (38-126); Anion Gap 20.3 mEq/L (5-15); Aspartate Amino Transferase 37 U/L (17-59); Bilirubin,Total 0.8 mg/dl (0.2-1.3); Blood Urea Nitrogen 19 mg/dl (9-20); Calcium 9.6 mg/dl (8.4-10.2); Carbon Dioxide 22 mmol/L (22.0-30.0); Chloride 98 mmol/L (98-107); Chol/HDL Ratio 3.2 (1-3.5); Cholesterol 104 mg/dl (140-200); Estimated Glomerular Filt Rate 82 ml/min (>60); GFR (African American) 100 ML/MIN (>60); Globulin 2.6 g/dL (1.3-3.2); Glucose 355 mg/dl (74-100); HDL Cholesterol 33 mg/dl (40-60); Potassium 4.3 mmoL/L (3.5-5.1); Sodium 136 mmol/L (136-145); Total Protein,Serum 7.3 g/dl (6.3-8.2); Triglycerides 318 mg/dl (30-150); VLDL Cholesterol 64 mg/dL (0-40)
[2023-03-22 17:30] LABS: Direct LDL Cholesterol 35.07 mg/dL (100-129)
[2023-03-22 17:34] LABS: Hemoglobin A1C 10.4 % (4.0-6.0)
[2023-03-22 17:49] LABS: Thyroid Stimulating Hormone 2.23 uIU/mL (0.465-4.68)
== END ==
PROVIDERS: PCP Family Medicine; Visit Provider Family Medicine
DX: I10 Essential (primary) hypertension (principal); E11.9 Type 2 diabetes mellitus without complications; R53.83 Other fatigue; E78.5 Hyperlipidemia, unspecified; Z00.00 Encounter for general adult medical examination without abnormal findings
CPT/HCPCS: 80053; 80061; 83036; 84443; 85025

== ENCOUNTER 2023-07-04 13:20 | Emergency (ER) | payer MEDICARE, SELFPAY ==
[2023-07-04 13:21] VITALS: BP 124/63; PULSE 61; RESP 19; TEMP 36.7; O2SAT 98; BMI 25.7
--- NOTE | 2023-07-04 13:23 | CT_ITS ---
FINAL REPORT CLINICAL HISTORY: L leg weakness on xarelto r/o stroke COMPARISON: 06/05/2018 FINDINGS: Axial images of the head were obtained without contrast. Coronal reformatted images were also obtained. This study was performed with techniques to keep radiation doses as low as reasonably achievable (ALARA). Individualized dose reduction techniques using automated exposure control or adjustment of mA and/or kV according to the patient''s size were employed. There is generalized age-appropriate atrophy. Periventricular low-attenuation areas are seen consistent with mild chronic ischemic changes. There is no evidence of intracranial hemorrhage or mass. There is no evidence of acute infarct. There is no evidence of shift of the midline structures. No skull abnormality is seen on the bone window images. There is total opacification of the left sphenoid sinus. IMPRESSION: Atrophy and mild periventricular chronic ischemic changes. No acute intracranial abnormality identified. Reviewed, Interpreted and Dictated by Ozzie Hernandez III, MD Transcribed by Mary Justice Authenticated and [facility]
--- NOTE | 2023-07-04 13:23 | XR_ITS ---
FINAL REPORT CLINICAL HISTORY: CVA workup FINDINGS: SINGLE-VIEW CHEST The heart size is normal. The mediastinum is normal. There are bibasilar opacities, left greater than right which may represent atelectasis or pneumonia. There is no pneumothorax. There are postoperative changes in the lower cervical spine. IMPRESSION: Bibasilar atelectasis versus pneumonia, left greater than right. Reviewed, Interpreted and Dictated by Ozzie Hernandez III, MD Transcribed by Mary Justice Authenticated and [facility]
--- NOTE | 2023-07-04 13:23 | CT_ITS ---
FINAL REPORT TECHNIQUE: Thin section axial CT with IV contrast supplemented with multiplanar reconstruction under CT angiogram protocol. 3-D reconstructions were performed. This study was performed with techniques to keep radiation doses as low as reasonably achievable (ALARA). Individualized dose reduction techniques using automated exposure control or adjustment of mA and/or kV according to the patient''s size were employed. CLINICAL HISTORY: L legweakness FINDINGS: The distal vertebral, basilar and distal internal carotid arteries have an unremarkable appearance. No aneurysm is seen. Major intracranial vessels are patent without significant stenosis. IMPRESSION: No evidence of significant stenosis. Reviewed, Interpreted and Dictated by Ozzie Hernandez III, MD Transcribed by Mary Justice Authenticated and [facility]
--- NOTE | 2023-07-04 13:23 | CT_ITS ---
FINAL REPORT TECHNIQUE: Thin section axial CT with IV contrast supplemented with multiplanar reconstruction under CT angiogram protocol. This study was performed with techniques to keep radiation doses as low as reasonably achievable (ALARA). Individualized dose reduction techniques using automated exposure control or adjustment of mA and/or kV according to the patient''s size were employed. NASCET criteria was utilized during interpretation. CLINICAL HISTORY: L leg weakness FINDINGS: Aortic arch: Arch shows no significant narrowing. Great vessel origins are widely patent. Right carotid: No significant stenosis is seen of the cervical common or internal carotid artery. Left carotid: No significant stenosis is seen of the cervical common or internal carotid artery. Vertebral: Right vertebral artery is dominant. No significant stenosis is present. Note is made of bilateral thyroid nodules which are nonspecific. There are degenerative and postoperative changes of the cervical spine. IMPRESSION: There is no significant stenosis or occlusion. Nonspecific bilateral thyroid nodules. If indicated, ultrasound may be helpful. Reviewed, Interpreted and Dictated by Ozzie Hernandez III, MD Transcribed by Mary Justice Authenticated and [facility]
--- NOTE | 2023-07-04 13:23 | ECG_ITS ---
APPROVED REPORT Exam: Resting ECG HR:64 bpm ECG Measurements Heart Rate 64 AXES IL 197 P 28 QRSd 100 QRS 8 QT 405 T 42 QTc 415 Conclusion SINUS RHYTHM NORMAL ECG UNCONFIRMED REPORT Electronically signed by : Manuel Sagastume MD 07/05/2023 08:48:32
[2023-07-04 13:37] LABS: Basophils % 0.4 % (0.1-2.0); Eosinophils # 0.1 K/mm3 (0.0-0.4); Eosinophils % 1.5 % (0.1-12.0); Hematocrit 49.5 % (42.0-52.0); Hemoglobin 15.8 g/dL (14.1-18.0); Lymphocytes % 16.9 % (10-50); Mean Corpuscular Hemoglobin 28.2 pg (27.0-31.2); Mean Platelet Volume 8.6 fl (7.4-10.4); Monocytes # 0.4 K/mm3 (0.1-1.0); Monocytes % 6.6 % (1.7-9.3); Neutrophils # 4.5 K/mm3 (1.8-7.8); Neutrophils % 74.6 % (37.0-80.0); Platelet Count 135 K/mm3 (142-424); Red Blood Count 5.62 M/mm3 (4.60-6.20); Red Cell Distribution Width 13.9 % (11.5-17.5)
[2023-07-04 13:39] LABS: Chloride 100 mmol/L (98-107); Sodium 137 mmol/L (136-145)
[2023-07-04 13:40] LABS: Potassium 4.8 mmoL/L (3.5-5.1)
[2023-07-04 13:42] LABS: Alanine Aminotransferase 38 U/L (12-78); Albumin Level 4.3 g/dl (3.5-5.0); Albumin/Globulin Ratio 1.4 (1.1-1.8); Alkaline Phosphatase 97 U/L (38-126); Anion Gap 18.8 mEq/L (5-15); Aspartate Amino Transferase 38 U/L (17-59); Bilirubin,Total 0.7 mg/dl (0.2-1.3); Blood Urea Nitrogen 20 mg/dl (9-20); Carbon Dioxide 23 mmol/L (22.0-30.0); Estimated Glomerular Filt Rate 49 ml/min (>60); GFR (African American) 60 ML/MIN (>60); Globulin 3.1 g/dL (1.3-3.2); Total Protein,Serum 7.4 g/dl (6.3-8.2)
[2023-07-04 13:44] LABS: Activated Partial Thrombo Time 27.9 seconds (22.8-30.6)
[2023-07-04 13:46] LABS: Glucose 414 mg/dl (74-100)
--- NOTE | 2023-07-04 13:48 | PC.NURSE ---
Valeria from lab called critical on patient. BG 414 mg\dl. repeated and confirmed
[2023-07-04 13:55] LABS: Troponin I < 0.01 ng/ml (0.00-0.034)
--- NOTE | 2023-07-04 13:57 | HMH.EDGENADL ---
Discharge Plan Disposition Patient Disposition: Home, Self-Care Chief Complaint: Neuro Symptoms/Deficit Prescriptions Prescriptions: No Action gabapentin 600 mg tablet 600 mg PO BID magnesium oxide 400 mg magnesium tablet 400 mg PO DAILY multivitamin Tablet 1 tab PO DAILY cholecalciferol (vitamin D3) 25 mcg (1,000 unit) tablet 25 mcg PO DAILY mecobalamin (vitamin B12) 1,000 mcg tablet,chewable 1,000 mcg PO DAILY lisinopril 10 mg tablet 10 mg PO DAILY metformin 1,000 mg tablet extended release 24 hr 500 mg PO DAILY sertraline 100 mg tablet See Rx Instructions .ROUTE .COMPLEX Qty: 180 0RF Dose Instruction: TAKE 2 TABLETS EVERY DAY FOR DEPRESSION Rx Instructions: TAKE 2 TABLETS EVERY DAY FOR DEPRESSION omega-3 acid ethyl esters 1 gram capsule 1 cap PO BID 90 Days Qty: 180 1RF metoprolol tartrate 25 mg tablet See Rx Instructions .ROUTE .COMPLEX Qty: 180 0RF Dose Instruction: TAKE 1 TABLET TWICE DAILY Rx Instructions: TAKE 1 TABLET TWICE DAILY (DME) Accu-Chek Richelle Plus test strp Strip See Rx Instructions .Route Qty: 100 3RF Rx Instructions: As directed semaglutide 0.25 mg or 0.5 mg(2 mg/1.5 mL) pen injector 0.5 mg SQ WEEKLY 90 Days Qty: 5.2 1RF glipizide 10 mg tablet extended release 24hr See Rx Instructions .ROUTE .COMPLEX Qty: 180 0RF Dose Instruction: TAKE 1 TABLET TWICE DAILY Rx Instructions: TAKE 1 TABLET TWICE DAILY Eliquis 5 mg tablet See Rx Instructions .ROUTE .COMPLEX Qty: 180 0RF Dose Instruction: TAKE 1 TABLET TWICE DAILY Rx Instructions: TAKE 1 TABLET TWICE DAILY omeprazole 20 mg capsule,delayed release(DR/EC) See Rx Instructions .ROUTE .COMPLEX Qty: 90 0RF Dose Instruction: TAKE 1 CAPSULE EVERY DAY FOR GERD Rx Instructions: TAKE 1 CAPSULE EVERY DAY FOR GERD rosuvastatin 40 mg tablet See Rx Instructions .ROUTE .COMPLEX Qty: 90 0RF Dose Instruction: TAKE 1 TABLET EVERY DAY Rx Instructions: TAKE 1 TABLET EVERY DAY tamsulosin 0.4 mg capsule See Rx Instructions .ROUTE .COMPLEX Qty: 90 0RF Dose Instruction: TAKE 1 CAPSULE EVERY DAY FOR PROSTATE Rx Instructions: TAKE 1 CAPSULE EVERY DAY FOR PROSTATE Referrals Follow up/Referrals: Arjun Giles MD [Primary Care Provider] - See instructions Amaris Kahn MD [Staff Physician] - See instructions Activity Restrictions/Add. Instructions Additional Instructions/Restrictions: Call your family doctor to establish care for this visit to the emergency department and schedule follow-up within 48 hours to ensure improvement. If you have any worsening of your condition or any other concerning signs or symptoms, return to the emergency department or your primary care doctor for further evaluation. Follow-up with neurology, information here. Clinical Impressions Clinical Impression: Transient left leg weakness Discharge ED Provider: Surinder Xavier General Adult HPI General Chief complaint: Neuro Symptoms/Deficit Stated complaint: weakness Time Seen by Provider: 07/04/23 13:22 History of Present Illness HPI narrative: 77-year-old male with history of hypertension, hyperlipidemia, CAD, type 2 diabetes, A-fib on Eliquis presenting with left leg weakness. Patient states he was mowing the lawn about an hour prior to arrival when he had acute onset left leg weakness. No left upper extremity or left facial problems. States that that lasted for about half hour until he was on his way here to the hospital and improved. Now able to bear weight and appears back to normal. Denies any chest pain, nausea vomiting, abdominal pain, back pain, trauma, or any other concerns. Currently feels back to baseline. Related Data Home Medications Medication Instructions Recorded Confirmed cholecalciferol (vitamin D3) 25 25 mcg PO DAILY 08/09/22 03/22/23 mcg (1,000 unit) table
[2023-07-04 13:58] LABS: INR 1.07 (0.9-1.1); Prothrombin Time 11.5 seconds (10.1-12.5)
[2023-07-04 14:18] LABS: NT Pro Brain Natriuretic Pep. 50.4 pg/mL (0-450)
[2023-07-04 14:55] LABS: Hemoglobin A1C 8.8 % (4.0-6.0)
[2023-07-04 15:33] VITALS: BP 114/59; PULSE 63; RESP 15; TEMP 36.8; O2SAT 95
== END 2023-07-04 15:36 | disposition home or self-care (01) ==
PROVIDERS: Emergency Provider Emergency Medicine; PCP Family Medicine
DX: R53.1 Weakness (principal); I10 Essential (primary) hypertension; E78.5 Hyperlipidemia, unspecified; I25.10 Atherosclerotic heart disease of native coronary artery without angina pectoris; E11.9 Type 2 diabetes mellitus without complications; I48.0 Paroxysmal atrial fibrillation; Z79.01 Long term (current) use of anticoagulants; Z87.891 Personal history of nicotine dependence
CPT/HCPCS: 70450; 70496; 70498; 71045; 80053; 83036; 83880; 84484; 85025; 85610; 85730; 93005; 96361; 96374; 99285; Q9967

== ENCOUNTER 2024-01-27 14:36 | Emergency (ER) | payer MEDICARE, SELFPAY ==
[2024-01-27 14:37] VITALS: BP 100/62; PULSE 72; RESP 18; TEMP 36.8; O2SAT 94; BMI 27.1
--- NOTE | 2024-01-27 16:00 | ED_ITS ---
Discharge Plan Disposition Patient Disposition: Home, Self-Care Condition: Good Prescriptions Prescriptions: New amoxicillin 500 mg tablet 500 mg PO BID 10 Days Qty: 20 0RF No Action magnesium oxide 400 mg magnesium tablet 400 mg PO DAILY multivitamin Tablet 1 tab PO DAILY cholecalciferol (vitamin D3) 25 mcg (1,000 unit) tablet 25 mcg PO DAILY mecobalamin (vitamin B12) 1,000 mcg tablet,chewable 1,000 mcg PO DAILY lisinopril 10 mg tablet 10 mg PO DAILY metoprolol tartrate 25 mg tablet See Rx Instructions .ROUTE .COMPLEX Qty: 180 0RF Dose Instruction: TAKE 1 TABLET TWICE DAILY Rx Instructions: TAKE 1 TABLET TWICE DAILY metformin 1,000 mg tablet extended release 24 hr 500 mg PO DAILY gabapentin 600 mg tablet 600 mg PO BID Qty: 180 1RF (DME) Accu-Chek Richelle Plus test strp Strip See Rx Instructions .Route Qty: 100 3RF Rx Instructions: As directed semaglutide 0.25 mg or 0.5 mg(2 mg/1.5 mL) pen injector 0.5 mg SQ WEEKLY 90 Days Qty: 5.2 1RF omega-3 acid ethyl esters 1 gram capsule 1 cap PO BID 90 Days Qty: 180 3RF insulin degludec [Tresiba U-100 Insulin] 100 unit/mL solution 10 unit SQ DAILY 90 Days Qty: 9 2RF (DME) pen needle, diabetic [BD Ultra-Fine Micro Pen Needle] 32 gauge x 1/4 needle See Rx Instructions .Route Qty: 100 2RF Rx Instructions: As directed sertraline 100 mg tablet See Rx Instructions .ROUTE .COMPLEX Qty: 180 0RF Dose Instruction: TAKE 2 TABLETS EVERY DAY FOR DEPRESSION Rx Instructions: TAKE 2 TABLETS EVERY DAY FOR DEPRESSION Eliquis 5 mg tablet See Rx Instructions .ROUTE .COMPLEX Qty: 180 1RF Dose Instruction: TAKE 1 TABLET TWICE DAILY Rx Instructions: TAKE 1 TABLET TWICE DAILY tamsulosin 0.4 mg capsule See Rx Instructions .ROUTE .COMPLEX Qty: 90 1RF Dose Instruction: TAKE 1 CAPSULE EVERY DAY FOR PROSTATE Rx Instructions: TAKE 1 CAPSULE EVERY DAY FOR PROSTATE omeprazole 20 mg capsule,delayed release(DR/EC) See Rx Instructions .ROUTE .COMPLEX Qty: 90 1RF Dose Instruction: TAKE 1 CAPSULE EVERY DAY FOR GERD Rx Instructions: TAKE 1 CAPSULE EVERY DAY FOR GERD rosuvastatin 40 mg tablet See Rx Instructions .ROUTE .COMPLEX Qty: 90 3RF Dose Instruction: TAKE 1 TABLET EVERY DAY Rx Instructions: TAKE 1 TABLET EVERY DAY glipizide 10 mg tablet extended release 24hr See Rx Instructions .ROUTE .COMPLEX Qty: 180 0RF Dose Instruction: TAKE 1 TABLET TWICE DAILY Rx Instructions: TAKE 1 TABLET TWICE DAILY Referrals Follow up/Referrals: Provider,Referral, [Primary Care Provider] - See instructions Activity Restrictions/Add. Instructions Additional Instructions/Restrictions: antibiotics as ordered tylenol or motrin as needed follow up with dentist- call for appointment if worsen return or be seen in ed Clinical Impressions Clinical Impression: Dental abscess Instructions Patient Instructions: Tooth Abscess Discharge ED Provider: Eder ([facility])[place] [facility] [place] H[place] General Stated complaint: tooth infected Mode of Arrival: Ambulatory Source of Information: Patient Limitations: No Limitations Time Seen by Provider: 01/27/24 16:01 HEENT Symptoms (Recalled from RN notes): Yes History of Present Illness Provider Complaint: 78 yr old male presents for dental abscess Related Data Home Medications Medication Instructions Recorded Confirmed cholecalciferol (vitamin D3) 25 25 mcg PO DAILY 08/09/22 10/17/23 mcg (1,000 unit) tablet magnesium oxide 400 mg PO DAILY 08/09/22 10/17/23 mecobalamin (vitamin B12) 1,000 1,000 mcg PO DAILY 08/09/22 10/17/23 mcg chewable tablet multivitamin 1 tab PO DAILY 08/09/22 10/17/23 metformin 1,000 mg tablet,extended 500 mg PO DAILY DM 02/16/23 10/17/23 release 24hr (osmotic) lisinopril 10 mg tablet 10 mg PO DAILY 03/22/23 10/17/23 Previous Rx's Medication Instructions Recorded blood sugar diagnostic (Accu-Chek #100 ea 05/01/23 Richelle Plus test strips) semaglutide 0.25 mg or 0.5 mg (2 0.5 mg (0.374 mL) SQ WEEKLY 90 06/02/23 mg/1.5 mL) subcutaneous pen days #5.2 mL injector metoprolol tartrate 25 mg tablet See Rx Instructions .Route 07/19/23 .COMPLEX #180 tabs insulin degludec 100 unit/mL 10 unit (0.1 mL) SQ DAILY 90 days 12/18/23 subcutaneous solution (Tresiba #9 mL U-100 Insulin) omega-3 acid ethyl esters 1 gram 1 cap PO BID . 90 days #180 caps 09/18/23 capsule pen needle, diabetic 32 gauge x #100 ea 09/18/2310/05 (BD Ultra-Fine Micro Pen Needle) sertraline 100 mg tablet See Rx Instructions .Route 10/03/23 .COMPLEX #180 tabs gabapentin 600 mg tablet 600 mg PO BID #180 tabs 10/17/23 apixaban 5 mg tablet (Eliquis) See Rx Instructions .Route 11/16/23 .COMPLEX #180 tabs omeprazole 20 mg capsule,delayed See Rx Instructions .Route 11/22/23 release .COMPLEX #90 caps rosuvastatin 40 mg tablet See Rx Instructions .Route 11/22/23 .COMPLEX #90 tabs tamsulosin 0.4 mg capsule See Rx Instructions .Route 11/22/23 .COMPLEX #90 caps glipizide 10 mg tablet, extended See Rx Instructions .Route 12/25/23 release 24 hr .COMPLEX #180 tabs amoxicillin 500 mg tablet 500 mg PO BID 10 days #20 tabs 01/27/24 Allergies Allergy/AdvReac Type Severity Reaction Status Date / Time No Known Allergies Allergy Verified 10/17/23 09:48 [facility] Disclaimer: The information contained in this section may have been updated after the patient was seen, as this information can be updated by other users. Medical History , APPLICATIONS PROJECT MANAGER) Transient left leg weakness Esophagitis Acute dyspnea Cough Hyperglycemia due to diabetes mellitus Acute febrile illness Generalized weakness HLD (hyperlipidemia) HTN (hypertension) History of skin cancer DM2 (diabetes mellitus, type 2) Paroxysmal A-fib CAD (coronary artery disease) Otitis media Dizziness Sinusitis Fall Facial laceration Acute thoracic myofascial strain Cervical strain, acute Head contusion Surgical History , APPLICATIONS PROJECT MANAGER) History of coronary artery stent placement Social History , APPLICATIONS PROJECT MANAGER) Smoking Status: Former smoker alcohol intake: never current occupational status: retired Travel in the last 8 weeks: None housing: house marital status: ROS Obtained: Yes All systems reviewed & no additional complaints except as documented Constitutional Constitutional: Reports system reviewed and no additional complaints, except as documented Eyes Eyes: Reports system reviewed and no additional complaints, except as documented ENT Ears, Nose, Mouth, and Throat: Reports system reviewed and no additional complaints, except as documented, Reports as per HPI and Reports dental pain Cardiovascular Cardiovascular: Reports system reviewed and no additional complaints, except as documented Respiratory Respiratory: Reports system reviewed and no additional complaints, except as documented Gastrointestinal Gastrointestingal: Reports system reviewed and no additional complaints, except as documented Musculoskeletal Musculoskeletal: Reports system reviewed and no additional complaints, except as documented Integumentary/Breasts Skin/Breast: Reports system reviewed and no additional complaints, except as documented Neurologic Neurologic: Reports system reviewed and no additional complaints, except as documented Endocrine Endocrine: Reports system reviewed and no additional complaints, except as documented Allergic/Immunologic Allergic/Immunologic: Reports system reviewed and no additional complaints, except as documented Physical Exam General General appearance: alert and in no apparent distress Head Head exam: atraumatic Eye Eye exam: Present normal appearance and PERRL ENT ENT exam: Present mucous membranes moist Expanded ENT Exam Teeth numbered Image: 2 1. Other (decay to gum line) Expanded Neck Exam Neck image: 2 1. abscess, golf ball size Respiratory Respiratory exam: Present normal lung sounds bilaterally Cardiovascular Cardiovascular exam: Present regular rate and normal rhythm Neurological Exam Neurological exam: Present alert and oriented X3 Skin Skin exam: Present warm and intact Medical Decision Making Medical Records Medical records reviewed: Yes I reviewed the patient's medical records. Ricki Inquiry Pt receiving controlled substance: No Ricki was queried for this patient: No
[2024-01-27] MEDS: LIDOCAINE 1% 5ML PF VIAL IM (16:13)
[2024-01-27] MEDS: cefTRIAXone 1GM VIAL 1 GM IM (16:13)
[2024-01-27 16:17] VITALS: BP 100/62; PULSE 72; RESP 18; TEMP 36.8; O2SAT 94
== END 2024-01-27 16:19 | disposition home or self-care (01) ==
PROVIDERS: Emergency Provider Nurse Practitioner Family
DX: K04.7 Periapical abscess without sinus (principal)
CPT/HCPCS: 96372; 99204; 99212; G0463; J0696

== ENCOUNTER 2024-02-20 10:44 | Outpatient (CLI) | payer MEDICARE, SELFPAY ==
[2024-02-20 11:15] LABS: Basophils % 0.4 % (0.1-2.0); Eosinophils # 0.1 K/mm3 (0.0-0.4); Eosinophils % 1.9 % (0.1-12.0); Hematocrit 38.6 % (42.0-52.0); Hemoglobin 15.5 g/dL (14.1-18.0); Lymphocytes # 1.1 K/mm3 (0.7-4.5); Mean Corpuscular Hemoglobin 35.3 pg (27.0-31.2); Mean Platelet Volume 8.5 fl (7.4-10.4); Monocytes # 0.3 K/mm3 (0.1-1.0); Monocytes % 4.8 % (1.7-9.3); Neutrophils # 4.4 K/mm3 (1.8-7.8); Neutrophils % 74.9 % (37.0-80.0); Platelet Count 109 K/mm3 (142-424); Red Blood Count 4.39 M/mm3 (4.60-6.20); White Blood Count 5.9 K/mm3 (4.8-10.8)
[2024-02-20 11:16] LABS: Mean Corpuscular HGB Conc 40.1 g/dL (31.8-35.4)
[2024-02-20 11:40] LABS: Alanine Aminotransferase 31 U/L (12-78); Albumin Level 4.6 g/dl (3.5-5.0); Alkaline Phosphatase 81 U/L (38-126); Anion Gap 16.9 mEq/L (5-15); Aspartate Amino Transferase 47 U/L (17-59); Bilirubin,Direct 0.2 mg/dl (0.0-0.4); Bilirubin,Indirect 0.7 mg/dL (0.0-0.9); Bilirubin,Total 0.9 mg/dl (0.2-1.3); Bilirubin,Unconjugated 0.6 mg/dL (0.0-1.1); Blood Urea Nitrogen 20 mg/dl (9-20); Calcium 9.4 mg/dl (8.4-10.2); Carbon Dioxide 25 mmol/L (22.0-30.0); Chloride 100 mmol/L (98-107); Chol/HDL Ratio 2.8 (1-3.5); Cholesterol 94 mg/dl (140-200); Estimated Glomerular Filt Rate 73 ml/min (>60); GFR (African American) 88 ML/MIN (>60); Glucose 333 mg/dl (74-100); HDL Cholesterol 33 mg/dl (40-60); Magnesium 1.3 mg/dl (1.6-2.3); Potassium 4.9 mmoL/L (3.5-5.1); Sodium 137 mmol/L (136-145); Total Protein,Serum 7.4 g/dl (6.3-8.2); Triglycerides 261 mg/dl (30-150); VLDL Cholesterol 52 mg/dL (0-40)
[2024-02-20 11:51] LABS: Direct LDL Cholesterol 40.68 mg/dL (100-129)
[2024-02-20 11:57] LABS: Free T4 (Free Thyroxine) 0.93 ng/dl (0.78-2.19)
[2024-02-20 12:11] LABS: Thyroid Stimulating Hormone 2.21 uIU/mL (0.465-4.68)
== END 2024-02-20 23:59 | disposition home or self-care (01) ==
PROVIDERS: Visit Provider Nurse Practitioner Family
DX: I11.9 Hypertensive heart disease without heart failure (principal); I25.10 Atherosclerotic heart disease of native coronary artery without angina pectoris; I48.0 Paroxysmal atrial fibrillation; E78.2 Mixed hyperlipidemia; Z95.5 Presence of coronary angioplasty implant and graft; Z87.891 Personal history of nicotine dependence
CPT/HCPCS: 36415; 80048; 80061; 80076; 83735; 84439; 84443; 85025

== ENCOUNTER 2024-05-14 14:52 | Outpatient (CLI) | payer MEDICARE, SELFPAY ==
[2024-05-14 12:53] LABS: Basophils % 0.6 % (0.1-2.0); Eosinophils # 0.1 K/mm3 (0.0-0.4); Hemoglobin 15.7 g/dL (14.1-18.0); Lymphocytes # 1.1 K/mm3 (0.7-4.5); Lymphocytes % 14.5 % (10-50); Mean Corpuscular HGB Conc 31.4 g/dL (31.8-35.4); Mean Corpuscular Hemoglobin 28.4 pg (27.0-31.2); Mean Corpuscular Volume 90.5 fl (80-94); Mean Platelet Volume 7.8 fl (7.4-10.4); Monocytes # 0.4 K/mm3 (0.1-1.0); Monocytes % 4.8 % (1.7-9.3); Neutrophils # 5.8 K/mm3 (1.8-7.8); Neutrophils % 79.1 % (37.0-80.0); Platelet Count 144 K/mm3 (142-424); Red Blood Count 5.53 M/mm3 (4.60-6.20); Red Cell Distribution Width 14.8 % (11.5-17.5); White Blood Count 7.3 K/mm3 (4.8-10.8)
[2024-05-14 13:20] LABS: Erythrocyte Sedimentation Rate 8 mm/hr (0-20)
[2024-05-14 13:40] LABS: Alanine Aminotransferase 30 U/L (12-78); Albumin Level 4.4 g/dl (3.5-5.0); Albumin/Globulin Ratio 1.6 (1.1-1.8); Alkaline Phosphatase 90 U/L (38-126); Anion Gap 16.1 mEq/L (5-15); Aspartate Amino Transferase 35 U/L (17-59); Bilirubin,Total 0.5 mg/dl (0.2-1.3); Blood Urea Nitrogen 18 mg/dl (9-20); Calcium 9.8 mg/dl (8.4-10.2); Carbon Dioxide 25 mmol/L (22.0-30.0); Chloride 103 mmol/L (98-107); Estimated Glomerular Filt Rate 73 ml/min (>60); GFR (African American) 88 ML/MIN (>60); Globulin 2.8 g/dL (1.3-3.2); Glucose 211 mg/dl (74-100); Potassium 5.1 mmoL/L (3.5-5.1); Sodium 139 mmol/L (136-145); Total Protein,Serum 7.2 g/dl (6.3-8.2)
[2024-05-14 14:11] LABS: Thyroid Stimulating Hormone 2.01 uIU/mL (0.465-4.68)
[2024-05-14 14:48] LABS: Folate > 20.00 ng/mL; Vitamin B12 > 1000 pg/mL (239-931)
== END 2024-05-14 23:59 | disposition home or self-care (01) ==
LOC: LAB.DROPOF 14:52
PROVIDERS: PCP Internal Medicine; Visit Provider Internal Medicine
DX: R41.3 Other amnesia (principal); I10 Essential (primary) hypertension; E78.2 Mixed hyperlipidemia; Z12.5 Encounter for screening for malignant neoplasm of prostate; Z87.891 Personal history of nicotine dependence
CPT/HCPCS: 80050; 80053; 82607; 82746; 84443; 85025; 85651; G0103

== ENCOUNTER 2024-05-22 07:04 | Outpatient (CLI) | payer MEDICARE, SELFPAY ==
--- NOTE | 2024-05-22 07:17 | CT_ITS ---
FINAL REPORT TECHNIQUE: multiple axial CT images were performed from the foramen magnum to the vertex without enhancement. CLINICAL HISTORY: Memory loss, falls, bladder incontinence COMPARISON: 07/04/2023 FINDINGS: The ventricles are enlarged. There is [id number] diffuse atrophy. There is periventricular white matter change likely related to small vessel disease. There is no evidence of hemorrhage, mass effect, or edema No extra-axial fluid is seen. There is complete opacification of a left cell of the sphenoid sinuses consistent with chronic sinusitis. No air-fluid levels are seen. IMPRESSION: Atrophy and chronic changes without acute process. Chronic sinusitis. Reviewed, Interpreted and Dictated by Kendall Rachel MD Transcribed by Bailey Umanzor Authenticated and [facility][1]
== END 2024-05-22 23:59 | disposition home or self-care (01) ==
PROVIDERS: PCP Internal Medicine; Visit Provider Internal Medicine
DX: R41.3 Other amnesia (principal); R29.6 Repeated falls; R32 Unspecified urinary incontinence
CPT/HCPCS: 70450

== ENCOUNTER 2024-08-08 09:46 | Emergency (ER) | payer MEDICARE, SELFPAY ==
[2024-08-08] VITALS (7 sets, daily range): BP systolic 133–186; BP diastolic 70–91; PULSE 64–70; RESP 16–19; TEMP 36.5; O2SAT 95–98; BMI 27.1
--- NOTE | 2024-08-08 10:05 | CA_ITS ---
FINAL REPORT TECHNIQUE: Color Doppler, duplex Doppler and compression sonography of the right lower extremity venous system was performed. CLINICAL HISTORY: Right leg pain and edema x 2 weeks. Denies trauma. COMPARISON: None FINDINGS: There is no evidence of deep venous thrombosis from the level of the groin to the calf. The veins are patent and compressible. IMPRESSION: No evidence of deep venous thrombosis right lower extremity. Reviewed, Interpreted and Dictated by Ozzie Hernandez III, MD Transcribed by Bailey Umanzor Authenticated and . [facility]
--- NOTE | 2024-08-08 10:05 | XR_ITS ---
FINAL REPORT CLINICAL HISTORY: .right hip pain , atraumatic COMPARISON: None FINDINGS: Three views of the mid to lower right femur were obtained. Knee arthroplasty is noted. There is no acute fracture or dislocation. The joint spaces are well preserved. There is no acute soft tissue abnormality. Vascular calcifications are present. IMPRESSION: No acute abnormality identified. Reviewed, Interpreted and Dictated by Ozzie Hernandez III, MD Transcribed by Bailey Umanzor Authenticated and [facility]
--- NOTE | 2024-08-08 10:05 | XR_ITS ---
FINAL REPORT CLINICAL HISTORY: ..right hip pain , atraumatic COMPARISON: None FINDINGS: RIGHT HIP Two views of the right hip with an AP view of the pelvis demonstrate no acute fracture or dislocation. There are mild degenerative changes of both hips. Moderate degenerative change is noted in the lower lumbar spine. The visualized bony structures are well aligned. No soft tissue abnormality is seen. IMPRESSION: Degenerative changes without acute bony abnormality. Reviewed, Interpreted and Dictated by Ozzie Hernandez III, MD Transcribed by Bailey Umanzor Authenticated and [facility]
--- NOTE | 2024-08-08 10:13 | PC.NURSE ---
Patient is gone to RAD
--- NOTE | 2024-08-08 10:14 | ED_ITS ---
Discharge Plan Disposition Patient Disposition: Home, Self-Care Condition: Good Prescriptions Prescriptions: No Action Eliquis 5 mg tablet 5 mg PO BID Qty: 60 5RF cholecalciferol (vitamin D3) 25 mcg (1,000 unit) tablet 25 mcg PO DAILY Qty: 30 5RF gabapentin 600 mg tablet 600 mg PO BID Qty: 60 2RF glipizide 10 mg tablet 10 mg PO BID Qty: 60 5RF Rx Instructions: Take before meals magnesium oxide 400 mg magnesium tablet 400 mg PO DAILY Qty: 30 5RF mecobalamin (vitamin B12) 1,000 mcg tablet,chewable 1,000 mcg PO DAILY Qty: 30 5RF metformin 1,000 mg tablet 1,000 mg PO BIDWMEAL Qty: 60 5RF multivitamin Tablet 1 tab PO DAILY Qty: 30 5RF omega-3 acid ethyl esters 1 gram capsule 1 cap PO BID 30 Days Qty: 60 5RF omeprazole 20 mg capsule,delayed release(DR/EC) 20 mg PO DAILY Qty: 30 5RF rosuvastatin [Crestor] 40 mg tablet 40 mg PO DAILY Qty: 30 5RF semaglutide 0.25 mg or 0.5 mg(2 mg/1.5 mL) pen injector 0.5 mg SQ WEEKLY 30 Days Qty: 1.87 5RF sertraline 100 mg tablet 200 mg PO DAILY Qty: 60 5RF tamsulosin 0.4 mg capsule 0.4 mg PO DAILY Qty: 30 5RF prednisone 5 mg tablet 5 mg PO BID Qty: 20 0RF (DME) Accu-Chek Richelle Plus test strp Strip See Rx Instructions .Route Qty: 100 3RF Rx Instructions: As directed (DME) pen needle, diabetic [BD Ultra-Fine Micro Pen Needle] 32 gauge x 1/4 needle See Rx Instructions .Route Qty: 100 2RF Rx Instructions: As directed metoprolol tartrate 25 mg tablet See Rx Instructions .ROUTE .COMPLEX Qty: 180 0RF Dose Instruction: TAKE 1 TABLET TWICE DAILY Rx Instructions: TAKE 1 TABLET TWICE DAILY donepezil 5 mg tablet 5 mg PO HS Qty: 30 2RF insulin degludec [Tresiba FlexTouch U-100] 100 unit/mL (3 mL) insulin pen 50 unit SQ DAILY 30 Days Qty: 15 2RF Referrals Follow up/Referrals: Adam Navarro MD [Primary Care Provider] - See instructions Activity Restrictions/Add. Instructions Additional Instructions/Restrictions: You were evaluated in the emergency department for leg pain. You are found to have low magnesium. Otherwise, your workup is reassuring. Please follow-up closely with your primary care provider. I am also providing you with information for orthopedics. Return to the emergency department for new or worsening symptoms. Clinical Impressions Clinical Impression: Acute pain of right thigh, Hypomagnesemia Instructions Patient Instructions: DI for Muscle Strain, DI for Hypomagnesemia Print Language Print Language: Frisian Discharge ED Provider: Gloria Temple General Adult HPI General Chief complaint: Extremity Problem,Nontraumatic Stated complaint: pain in R leg, warm spot, x 2 weeks Time Seen by Provider: 08/08/24 09:50 Mode of Arrival: Family Vehicle Source of Information: Patient, Relative and Medical Record Limitations: No Limitations Description of Symptoms (Recalled from ER Triage Doc. by RN): Pt c/o RLE redness and pain from his R knee radiating to R groin/Hip. States it started approx 2 wk ago and he saw his pcp, Dr. Navarro, and was prescribed Cortisone pills. States the pain is just worsening with time and he is having difficulty walking on this leg. Family states the pt has neuropathy and takes gabapentin. Denies any fever, chills, or n/v/d. Pulses intact to RLE. Pt feels the leg is hot . History of Present Illness HPI narrative: This patient is a 78-year-old male with a history of type 2 diabetes, hypertension, hyperlipidemia, paroxysmal A-fib presenting to the emergency department for evaluation with concern for right thigh pain that has been going on for about 2 weeks. He is seen his primary care provider who prescribed him cortisone pills, but the pain is worsening and he is having difficulty walking on the leg. He notes his leg feels hot. The pain is mostly on the inner aspect of his right thigh and radiates to his groin/hip. No falls or injuries noted. No history of blood clots or clotting disorders. No new numbness or tingling. No fevers, chills, or other systemic symptoms. Related Data Previous Rx's ?Medication ?Instructions ?Recorded pen needle, diabetic 32 gauge x #100 ea 09/18/2310/05 (BD Ultra-Fine Micro Pen Needle) apixaban 5 mg tablet (Eliquis) 5 mg PO BID #60 tabs 05/16/24 cholecalciferol (vitamin D3) 25 25 mcg PO DAILY #30 tabs 05/16/24 mcg (1,000 unit) tablet gabapentin 600 mg tablet 600 mg PO BID #60 tabs 05/16/24 glipizide 10 mg tablet 10 mg PO BID #60 tabs 05/16/24 magnesium oxide 400 mg PO DAILY #30 tabs 05/16/24 mecobalamin (vitamin B12) 1,000 1,000 mcg PO DAILY #30 tabs 05/16/24 mcg chewable tablet metformin 1,000 mg tablet 1,000 mg PO BIDWMEAL #60 tabs 05/16/24 multivitamin 1 tab PO DAILY #30 tabs 05/16/24 omega-3 acid ethyl esters 1 gram 1 cap PO BID . 30 days #60 caps 05/16/24 capsule omeprazole 20 mg capsule,delayed 20 mg PO DAILY #30 caps 05/16/24 release rosuvastatin 40 mg tablet (Crestor) 40 mg PO DAILY #30 tabs 05/16/24 semaglutide 0.25 mg or 0.5 mg (2 0.5 mg (0.374 mL) SQ WEEKLY 30 05/16/24 mg/1.5 mL) subcutaneous pen days #1.87 mL injector sertraline 100 mg tablet 200 mg (2 x 100 mg) PO DAILY #60 05/16/24 tabs tamsulosin 0.4 mg capsule 0.4 mg PO DAILY #30 caps 05/16/24 metoprolol tartrate 25 mg tablet See Rx Instructions .Route 06/17/24 .COMPLEX #180 tabs donepezil 5 mg tablet 5 mg PO HS For memory #30 tabs 06/25/24 insulin degludec 100 unit/mL (3 50 unit (0.5 mL) SQ DAILY 30 days 06/26/24 mL) subcutaneous pen (Tresiba #15 mL FlexTouch U-100 insulin) blood sugar diagnostic (Accu-Chek #100 ea 08/01/24 Richelle Plus test strips) prednisone 5 mg tablet 5 mg PO BID #20 tabs 08/01/24 Allergies Allergy/AdvReac Type Severity Reaction Status Date / Time No Known Allergies Allergy Verified 08/01/24 11:02 [facility] Disclaimer: The information contained in this section may have been updated after the patient was seen, as this information can be updated by other users. Medical History Transient left leg weakness Esophagitis Acute dyspnea Cough Hyperglycemia due to diabetes mellitus Acute febrile illness Generalized weakness HLD (hyperlipidemia) HTN (hypertension) History of skin cancer DM2 (diabetes mellitus, type 2) Paroxysmal A-fib CAD (coronary artery disease) Otitis media Dizziness Sinusitis Fall Facial laceration Acute thoracic myofascial strain Cervical strain, acute Head contusion Surgical History History of coronary artery stent placement Social History Smoking Status: Former smoker alcohol intake: never current occupational status: retired Travel in the last 8 weeks: None housing: house marital status: Other Medical History Have you received the Flu Vaccine for this season: Yes Have you received the Pneumonia Vaccine: Yes ROS Obtained: Yes All systems reviewed & no additional complaints except as documented Physical Exam General General appearance: alert and in no apparent distress Head Head exam: atraumatic and normocephalic Eye Eye exam: Present normal appearance, PERRL and EOMI ENT ENT exam: Present normal exam, normal oropharynx, mucous membranes moist and normal external ear exam Neck Neck exam: Present normal inspection, full ROM and trachea midline; Absent tenderness Chest Chest inspection: Present normal inspection and symmetric chest wall rise; Absent tenderness Respiratory Respiratory exam: Present normal lung sounds bilaterally; Absent respiratory distress, wheezes, stridor or accessory muscle use Cardiovascular Cardiovascular exam: Present regular rate and normal rhythm Abdominal Exam Abdominal exam: Present soft; Absent distention, tenderness or guarding Extremities Exam Extremities exam: Present full ROM, tenderness (Tenderness to palpation of the medial thigh without obvious skin color changes or deformity. No wounds. No rashes or lesions.), normal capillary refill and other (All compartments are soft. Sensation around baseline. Good pulses and capillary refill distally with a warm and well-perfused extremity.); Absent edema Back Exam Back exam: Present normal inspection and full ROM; Absent tenderness Neurological Exam Neurological exam: Present alert, oriented X3, CN II-XII intact and normal gait; Absent motor sensory deficit Psychiatric Psychiatric exam: Present normal affect and normal mood Skin Skin exam: Present warm and dry Medical Decision Making Medical Records Medical records reviewed: Yes I reviewed the patient's medical records. Screening: Per USPSTF and CDC recommendations, given the prevalence of disease in our region, it is our hospital?s policy to screen for HIV and viral Hepatitis for all patients aged 18 and over and those with ongoing risk factors. Ricki Inquiry Pt receiving controlled substance: No Vital Signs: 08/08/24 09:47 08/08/24 09:54 08/08/24 10:00 Temperature 97.7 F Temperature Source Oral Pulse Rate 68 70 Pulse Rate [Right] 64 Respiratory Rate 19 Blood Pressure 186/91 H 171/87 H Blood Pressure [Right Arm] 186/91 H Blood Pressure Mean Blood Pressure Mean [Right Arm] 122 Blood Pressure Source Blood Pressure Source [Right Arm] Automatic Cuff 02 Sat by Pulse Oximetry 96 97 96 Oxygen Delivery Method Room Air 08/08/24 10:30 08/08/24 11:01 08/08/24 11:30 Temperature Temperature Source Pulse Rate 65 66 70 Pulse Rate [Right] Respiratory Rate Blood Pressure 145/81 H 137/76 133/70 Blood Pressure [Right Arm] Blood Pressure Mean 117 96 91 Blood Pressure Mean [Right Arm] Blood Pressure Source Blood Pressure Source [Right Arm] 02 Sat by Pulse Oximetry 96 96 95 Oxygen Delivery Method Room Air 08/08/24 12:49 Temperature 97.7 F Temperature Source Oral Pulse Rate 68 Pulse Rate [Right] Respiratory Rate 16 Blood Pressure 136/74 Blood Pressure [Right Arm] Blood Pressure Mean Blood Pressure Mean [Right Arm] Blood Pressure Source Automatic Cuff Blood Pressure Source [Right Arm] 02 Sat by Pulse Oximetry Oxygen Delivery Method Room Air Lab Data Lab results reviewed: Yes I reviewed the patient's lab results. Lab Results 08/08/24 09:55: WBC 8.6, RBC 6.03, Hgb 17.2, Hct 51.3, MCV 85.0, MCH 28.5, MCHC 33.6, RDW 15.2, Plt Count 162, MPV 7.9, Neut % (Auto) 77.2, Lymph % (Auto) 15.1, Nance % (Auto) 5.0, Eos % (Auto) 2.0, Baso % (Auto) 0.8, Neut # (Auto) 6.6, Lymph # (Auto) 1.3, Nance # (Auto) 0.4, Eos # (Auto) 0.2, Baso # (Auto) 0.1, ESR 4, Sodium 139, Potassium 4.2, Chloride 101, Carbon Dioxide 26, Anion Gap 16.2 H, BUN 15, Creatinine 0.90, Estimated Creat Clear 81, Estimated GFR 82, Est GFR ( Amer) 99, Glucose 222 H, Calcium 9.5, Magnesium 1.3 L, Total Bilirubin 0.8, AST 39, ALT 40, Alkaline Phosphatase 76, C-Reactive Protein < 0.3, Total Protein 7.8, Albumin 4.9, Globulin 2.9, Albumin/Globulin Ratio 1.7, HIV 1&2 Antibody Rapid Nonreactive 08/08/24 09:55 08/08/24 09:55 Orders (Tests/Meds): ED MEDICATIONS Discontinued Medications Generic Name Dose Route Start Last Admin Trade Name Chaimq PRN Reason Stop Dose Admin Acetaminophen 1,000 mg 08/08/24 10:05 08/08/24 10:20 Acetaminophen 500mg Tab PO 08/08/24 10:06 1,000 mg ONCE ONE Administration Magnesium Sulfate 2 gm in 50 mls @ 50 mls/hr 08/08/24 10:45 08/08/24 10:47 Magnesium Sulfate 2gm/50ml Premix IV 08/08/24 11:44 50 mls/hr ONCE ONE Administration Ketorolac Tromethamine 15 mg 08/08/24 10:05 08/08/24 10:20 Ketorolac 30mg/Ml Vial IV 08/08/24 10:06 15 mg ONCE ONE Administration Lidocaine 1 each 08/08/24 10:48 08/08/24 11:02 Lidocaine 5% Transdermal Patch TP 08/08/24 10:49 1 each ONCE ONE Administration ORDERS Category Date Time Status Femur XR right 2 views [XR femur RT 2V] Stat Exams 08/08/24 10:05 Completed Hip XR right minimum 2 views [XR hip RT 2-3V w/pelvis] Exams 08/08/24 10:05 Completed Stat CRP [C-Reactive Protein] Stat Lab 08/08/24 09:55 Completed Complete Blood Count Auto Diff Stat Lab 08/08/24 09:55 Completed Comprehensive Metabolic Panel Stat Lab 08/08/24 09:55 Completed ESR [Erythrocyte Sedimentation Rate] Stat Lab 08/08/24 09:55 Completed HIV (1&2) Antibody Rapid Stat Lab 08/08/24 09:55 Completed Hep C Ab with Reflex to RNA Stat Lab 08/08/24 09:55 Received MAG [Magnesium] Stat Lab 08/08/24 09:55 Completed CA venous doppler LE RT Stat Y 08/08/24 10:05 Completed Medical Decision Narrative: In summary, this patient is a 78-year-old male presenting to the Emergency Department for evaluation of right medial thigh pain. Differential diagnoses considered include but are not limited to DVT, musculoskeletal strain/sprain, pathologic fracture, cellulitis. Ruling out the most morbid conditions drove assessment. It should be noted patient's history includes diabetes and peripheral neuropathy which may or may not be at goal therapy. This complicates all aspects of care by increasing patient's risk for morbidity. I reviewed patient's past medical records and noted previous evaluation by PCP 08/01/2024 for similar issue and was diagnosed with muscle strain of right thigh. He was prescribed steroids, which he states did not help. On exam, the patient is lying in bed in no acute distress. He has tenderness palpation of his medial thigh but no appreciable skin changes, crepitus, swelling, erythema. He is neurovascularly intact distally with an extremity is warm and well-perfused. Workup included CBC, CMP, ESR, CRP, magnesium, DVT ultrasound, and x-rays of the right hip and femur. He was given IV Toradol and oral Tylenol for symptomatic improvement of pain. I independently interpreted x-ray and ultrasound prior to the radiologist read and noted no acute fracture or DVT. Please see their read for final interpretation. Labs were obtained that demonstrated no significant leukocytosis, no elevation in inflammatory markers, reassuring chemistry. On reassessment, patient had some improvement after administration of interventions above. Ultimately, I feel he likely has musculoskeletal pain given that we have excluded other acute life-threatening pathology. I feel it is appropriate for discharge home with instruction for supportive management and treatment of muscle strain. He was given instructions for close follow-up and strict return precautions. He was discharged after all questions were answered. Critical Care Critical Care Time Critical Care Time: No
[2024-08-08] MEDS: KETOROLAC 30MG/ML VIAL 15 MG IV (10:20)
[2024-08-08] MEDS: ACETAMINOPHEN 500MG TAB 1000 MG PO (10:20)
[2024-08-08 10:21] LABS: Basophils # 0.1 K/mm3 (0-0.2); Basophils % 0.8 % (0.1-2.0); Eosinophils # 0.2 K/mm3 (0.0-0.4); Hematocrit 51.3 % (42.0-52.0); Hemoglobin 17.2 g/dL (14.1-18.0); Lymphocytes # 1.3 K/mm3 (0.7-4.5); Lymphocytes % 15.1 % (10-50); Mean Corpuscular HGB Conc 33.6 g/dL (31.8-35.4); Mean Corpuscular Hemoglobin 28.5 pg (27.0-31.2); Mean Platelet Volume 7.9 fl (7.4-10.4); Monocytes # 0.4 K/mm3 (0.1-1.0); Neutrophils # 6.6 K/mm3 (1.8-7.8); Neutrophils % 77.2 % (37.0-80.0); Platelet Count 162 K/mm3 (142-424); Red Blood Count 6.03 M/mm3 (4.60-6.20); Red Cell Distribution Width 15.2 % (11.5-17.5); White Blood Count 8.6 K/mm3 (4.8-10.8)
[2024-08-08 10:31] LABS: Alanine Aminotransferase 40 U/L (12-78); Albumin Level 4.9 g/dl (3.5-5.0); Albumin/Globulin Ratio 1.7 (1.1-1.8); Alkaline Phosphatase 76 U/L (38-126); Anion Gap 16.2 mEq/L (5-15); Aspartate Amino Transferase 39 U/L (17-59); Bilirubin,Total 0.8 mg/dl (0.2-1.3); Blood Urea Nitrogen 15 mg/dl (9-20); Calcium 9.5 mg/dl (8.4-10.2); Carbon Dioxide 26 mmol/L (22.0-30.0); Chloride 101 mmol/L (98-107); Creatinine Clearance Estimated 81 mL/min (50-200); Estimated Glomerular Filt Rate 82 ml/min (>60); GFR (African American) 99 ML/MIN (>60); Globulin 2.9 g/dL (1.3-3.2); Glucose 222 mg/dl (74-100); Magnesium 1.3 mg/dl (1.6-2.3); Potassium 4.2 mmoL/L (3.5-5.1); Sodium 139 mmol/L (136-145); Total Protein,Serum 7.8 g/dl (6.3-8.2)
[2024-08-08] MEDS: MAGNESIUM SULFATE IN WATER 2 GM/50 ML PIGGYBACK IV (10:47)
[2024-08-08] MEDS: LIDOCAINE 5% TRANSDERMAL PATCH 1 EACH TP (11:02)
[2024-08-08 11:27] LABS: C-Reactive Protein < 0.3 mg/L (0-4)
[2024-08-08 11:47] LABS: HIV (1&2) Antibody Rapid NONREACTIVE (NONREACTIVE)
--- NOTE | 2024-08-08 11:52 | PC.NURSE ---
DR REED AT BEDSIDE TO UPDATE PT AND FAMILY
[2024-08-08 13:19] LABS: Erythrocyte Sedimentation Rate 4 mm/hr (0-20)
[2024-08-09 05:12] LABS: HCV Ab Non Reactive (Non Reactive)
== END 2024-08-08 12:56 | disposition home or self-care (01) ==
PROVIDERS: Emergency Provider Emergency Medicine; PCP Internal Medicine
DX: M79.651 Pain in right thigh (principal); E83.42 Hypomagnesemia
CPT/HCPCS: 73502; 73552; 80053; 83735; 85025; 85651; 86140; 86803; 87389; 93971; 96365; 96375; 99284; J1885; J3475

== ENCOUNTER 2024-09-03 10:38 | Outpatient (CLI) | payer MEDICARE, SELFPAY ==
--- NOTE | 2024-09-03 10:41 | CT_ITS ---
FINAL REPORT TECHNIQUE: Thin section axial CT images with coronal and sagittal reformats were performed through the neck. This study was performed with techniques to keep radiation doses as low as reasonably achievable (ALARA). Individualized dose reduction techniques using automated exposure control or adjustment of mA and/or kV according to the patient's size were employed. CLINICAL HISTORY: trouble swallowing, sore throat/ globus sensation COMPARISON: 07/04/2023 FINDINGS: CT NECK SOFT TISSUE: There is total opacification of the left sphenoid sinus. There is mucosal thickening in the maxillary sinuses. The hypopharynx and oral cavity are unremarkable in appearance. Mild vascular calcifications are noted. The larynx appears unremarkable. There are small bilateral thyroid nodules noted. Moderate to severe degenerative change is present in the cervical spine, and the patient has undergone a prior anterior cervical fusion from C5-C7. There is presumed mucus in the upper thoracic trachea. IMPRESSION: Total opacification of the left sphenoid sinus with mucosal thickening in the maxillary sinuses. Small bilateral thyroid nodules are noted, recommend thyroid ultrasound for further evaluation as clinically indicated. Degenerative change in the cervical spine with prior fusion from C5-C7. Reviewed, Interpreted and Dictated by Ozzie Hernandez III, MD Transcribed by Mercedes Oscar Authenticated and . [facility]
[2024-09-07 00:08] LABS: D001-IgE D pteronyssinus 0.31 kU/L (Class 0/I); D002-IgE D farinae 0.36 kU/L (Class I); E001-IgE Cat Dander 5.67 kU/L (Class IV); E005-IgE Dog Dander 0.79 kU/L (Class II); E072-IgE Mouse Urine <0.10 kU/L (Class 0); G002-IgE Bermuda Grass 0.14 kU/L (Class 0/I); G006-IgE Timothy Grass 0.15 kU/L (Class 0/I); I006-IgE Cockroach, German 0.43 kU/L (Class I); Immunoglobulin E, Total 302 IU/mL (6-495); M001-IgE Penicillium chrysogen <0.10 kU/L (Class 0); M002-IgE Cladosporium herbarum <0.10 kU/L (Class 0); M003-IgE Aspergillus fumigatus <0.10 kU/L (Class 0); M006-IgE Alternaria alternata <0.10 kU/L (Class 0); T001-IgE Maple/Box Elder 0.13 kU/L (Class 0/I); T003-IgE Common Silver Birch <0.10 kU/L (Class 0); T006-IgE Cedar, Mountain 0.15 kU/L (Class 0/I); T007-IgE Oak, White 0.13 kU/L (Class 0/I); T008-IgE Elm, American 0.13 kU/L (Class 0/I); T010-IgE Walnut 0.18 kU/L (Class 0/I); T011-IgE Maple Leaf Sycamore 0.16 kU/L (Class 0/I); T014-IgE Cottonwood 0.13 kU/L (Class 0/I); T015-IgE Ash, White 0.13 kU/L (Class 0/I); T022-IgE Pecan, Hickory 0.14 kU/L (Class 0/I); T070-IgE White Mulberry <0.10 kU/L (Class 0); W001-IgE Ragweed, Short 0.14 kU/L (Class 0/I); W014-IgE Pigweed, Common <0.10 kU/L (Class 0); W018-IgE Sheep Sorrel 0.11 kU/L (Class 0/I)
== END 2024-09-03 23:59 | disposition home or self-care (01) ==
PROVIDERS: Otolaryngology; PCP Family Medicine; Visit Provider Nurse Practitioner
DX: R13.10 Dysphagia, unspecified (principal); J02.9 Acute pharyngitis, unspecified; T78.3XXA Angioneurotic edema, initial encounter
CPT/HCPCS: 36415; 70490; 82785; 86003

== ENCOUNTER 2024-09-27 13:32 | Outpatient (CLI) | payer MEDICARE, SELFPAY ==
--- NOTE | 2024-09-27 13:35 | MR_ITS ---
FINAL REPORT CLINICAL HISTORY: DD. RIGHT LEG PAIN, NUMBNESS AND TINGLING. NO INJURY OR TRAUMA COMPARISON: None FINDINGS: Multiplanar MR imaging of the lumbar spine was performed without contrast. On the sagittal T2-weighted images, there is abnormal decreased signal at the L2-3, L3-4, and L4-5 discs. There is moderate loss of height of the L3-4 disc level. The vertebral alignment is normal. T12-L1: There is no significant canal stenosis or neural foraminal narrowing. L1-2: There is no significant canal stenosis or neural foraminal narrowing. L2-3: Mild disc bulge. Mild bilateral neural foraminal narrowing. L3-4: Moderate diffuse disc bulge. Moderate right paracentral disc extrusion extending inferiorly from the disc space resulting in moderate compromise right lateral recess image 22 series 5. Moderate to high-grade bilateral neural foraminal narrowing. L4-5: Moderate diffuse disc bulge. Moderate bilateral neural foraminal narrowing. L5-S1: Mild facet hypertrophy. Mild bilateral neural foraminal narrowing. IMPRESSION: Right paracentral disc extrusion at L3-4 with compromise right lateral recess. Bilateral neural foraminal narrowing at L3-4. Reviewed, Interpreted and Dictated by Kendall Rachel MD Transcribed by Bailey Umanzor Authenticated and [facility]
== END 2024-09-27 23:59 | disposition home or self-care (01) ==
LOC: RAD 13:32
PROVIDERS: PCP Family Medicine; Visit Provider Physician Assistant
DX: M51.360 Other intervertebral disc degeneration, lumbar region with discogenic back pain only (principal)
CPT/HCPCS: 72148

== ENCOUNTER 2024-12-10 10:31 | Outpatient (CLI) | payer MEDICARE, SELFPAY ==
[2024-12-10 21:41] LABS: Creatinine,Urine Random 468 mg/dL (Not Estab.)
[2024-12-10 23:58] LABS: Microalbumin > 1140.000 mg/L (0-16.7); Microalbumin/Creatinine Ratio 243.5
== END 2024-12-10 23:59 | disposition home or self-care (01) ==
LOC: LAB.DROPOF 12-12 09:26
PROVIDERS: PCP Family Medicine; Visit Provider Family Medicine
DX: E11.42 Type 2 diabetes mellitus with diabetic polyneuropathy (principal); Z79.84 Long term (current) use of oral hypoglycemic drugs; Z79.85 Long-term (current) use of injectable non-insulin antidiabetic drugs
CPT/HCPCS: 82043; 82570